=== PATIENT | female | born 1960 | race Caucasian/White ===

== ENCOUNTER → 2017-07-18 | Outpatient (CLI) | payer MEDICARE, MEDICAID ==
[~2017-07-18] MED LIST: LEVO50TA86 PO; LISI-362 PO; METF-410 PO; SIMV-49 PO
== END ==
LOC: AMB 23:09
PROVIDERS: ATTEND Nurse Practitioner
DX: M79.662 Pain in left lower leg (principal); W18.30XA Fall on same level, unspecified, initial encounter; Y92.000 Kitchen of unspecified non-institutional (private) residence as the place of occurrence of the external cause
CPT/HCPCS: A0425; A0427

== ENCOUNTER 2017-07-19 00:20 | Emergency (ER) | payer MEDICARE, MEDICAID ==
--- NOTE | 2017-07-19 00:22 | ER Report ---
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 She fell at approximately 4 PM onto her left hip. She's been lying on the floor for the last 8 hours. Her daughter found her and called EMS to come bring her in. Patient denies head impact, neck pain, chest pain, shortness of breath. She denies syncope. Patient reports she was unable to get up due to left hip pain. She received fentanyl 100 g by EMS. Fingerstick glucose by EMS was 391 2 arrival. On arrival, she is voicing no complaints. REVIEW OF SYSTEMS: Respiratory: No cough, no dyspnea. Cardiovascular: No chest pain, no palpitations. Gastrointestinal: No vomiting, no abdominal pain. Musculoskeletal: No back pain. Allergies: Coded Allergies: Penicillins (Verified Allergy, Intermediate, HIVES, 07/19/17) Home Meds Reported Medications Metformin Hcl (METFORMIN HCL) 500 Mg Tablet, 1 TAB PO BID, TAB 07/19/17 Lisinopril (LISINOPRIL) 10 Mg Tablet, 10 MG PO QDAY, TAB 07/19/17 Levothyroxine Sodium (LEVOTHYROXINE SODIUM) 50 Mcg Tablet, 25 MCG PO QDAY, TAB 07/19/17 Simvastatin (SIMVASTATIN) 20 Mg Tablet, 10 MG PO HS, TAB 07/19/17 Past Medical/Surgical History Type II diabetes on metformin, hypertension on lisinopril, hypothyroidism on replacement Reviewed Nurses Notes: Yes Old Medical Records Reviewed: Yes Constitutional Vital Sign - Last 24 Hours 07/19/17 07/19/17 07/19/17 07/19/17 00:21 00:22 00:50 00:55 Temp 98.0 Pulse 69 72 71 Resp 19 B/P (MAP) 138/93 (108) 138/93 Pulse Ox 93 96 97 O2 Delivery Room Air 07/19/17 07/19/17 07/19/17 07/19/17 01:10 01:25 01:55 02:00 Pulse 96 71 107 Pulse Ox 93 100 100 O2 Flow Rate 2.0 07/19/17 07/19/17 07/19/17 07/19/17 02:30 03:00 03:24 03:30 Pulse 105 104 71 B/P (MAP) 132/72 (92) Pulse Ox 96 96 95 07/19/17 07/19/17 07/19/17 07/19/17 03:35 04:00 04:30 04:35 Pulse 72 81 B/P (MAP) 97/60 (72) 96/63 (74) Pulse Ox 95 96 07/19/17 07/19/17 07/19/17 07/19/17 05:00 05:05 05:30 05:35 Pulse 82 88 B/P (MAP) 94/62 (73) 82/60 (67) Pulse Ox 97 99 Physical Exam General Appearance: The patient is alert, has no immediate need for airway protection and no current signs of toxicity. Vital signs stable, afebrile, no acute distress HEENT: Pupils equal and round no injection. Oropharynx without redness or exudate, mucous membranes are moist Respiratory: Chest is non tender, lungs are clear to auscultation. No chest wall tenderness Cardiac: regular rate and rhythm, distant heart sounds Gastrointestinal: Abdomen is soft and non tender, no masses, bowel sounds normal. Musculoskeletal: Neck: Neck is supple and non tender. No tenderness in the midline Extremities have full range of motion and are non tender. Decreased range of motion of the left leg. Palpation notes tenderness of the left hip and knee area, left lower externally is neurovascularly intact. Skin: No rashes or lesions. DIFFERENTIAL DIAGNOSIS: After history and physical exam differential diagnosis was considered for fall in the elderly including but not limited to intracranial injury, long bone and pelvic bone fracture, spinal injury, and intrathoracic injury. Medical Decision Making Data Points Result Diagram: 07/19/17 0030 07/19/17 003 Laboratory Hematology Test 07/19/17 00:30 07/19/17 01:10 07/19/17 03:28 Red Blood Count 5.05 M/uL (4.17-5.56) Mean Corpuscular Volume 83.1 fL (80.0-96.0) Mean Corpuscular Hemoglobin 28.1 pg (26.0-33.0) Mean Corpuscular Hemoglobin Concent 33.8 g/dL (32.0-36.0) Red Cell Distribution Width 14.7 % (11.5-14.5) Mean Platelet Volume 8.4 fL (7.2-11.1) Neutrophils (%) (Auto) 78.9 % (39.4-72.5) Lymphocytes (%) (Auto) 13.8 % (17.6-49.6) Monocytes (%) (Auto) 6.3 % (4.1-12.4) Eosinophils (%) (Auto) 0.2 % (0.4-6.7) Basophils (%) (Auto) 0.8 % (0.3-1.4) Nucleated RBC Relative Count (auto) 0.1 /100WBC Neutrophils # (Auto) 7.1 K/uL (2.0-7.4) Lymphocytes # (Auto) 1.2 K/uL (1.3-3.6) Monocytes # (Auto) 0.6 K/uL (0.3-1.0) Eosinophils # (Auto) 0.0 K/uL (0.0-0.5) Basophils # (Auto) 0.1 K/uL (0.0-0.1) Nucleated RBC Absolute Count (auto) 0.01 K/uL Prothrombin Time 13.6 seconds (12.0-14.4) Prothromb Time International Ratio 1.03 Activated Partial Thromboplast Time 27 seconds (23-35) Sodium Level 134 mmol/L (137-145) Potassium Level 4.3 mmol/L (3.5-5.0) Chloride Level 97 mmol/L (98-107) Carbon Dioxide Level 20 mmol/L (22-31) Blood Urea Nitrogen 13 mg/dl (7-18) Creatinine 0.70 mg/dl (0.52-1.04) Glomerular Filtration Rate Calc > 60.0 Random Glucose 500 mg/dl (75-110) Lactate 1.3 mmol/L (0.7-2.1) Calcium Level 8.8 mg/dl (8.4-10.2) Total Bilirubin 1.0 mg/dl (0.2-1.3) Aspartate Amino Transf (AST/SGOT) 16 U/L (0-35) Alanine Aminotransferase (ALT/SGPT) 23 U/L (0-56) Alkaline Phosphatase 98 U/L (0-126) Total Creatine Kinase 74 U/L (30-135) Troponin I < 0.012 ng/ml Total Protein 5.6 gm/dl (6.3-8.2) Albumin 3.1 g/dl (3.5-5.0) Urine Color Yellow Urine Clarity Slightly-cloudy Urine pH 5.0 pH (4.8-9.5) Urine Specific [place] 1.026 Urine Protein 100 mg/dL (NEGATIVE) Urine Glucose (UA) 500 mg/dL (NEGATIVE) Urine Ketones 20 mg/dL (NEGATIVE) Urine Blood Small (NEGATIVE) Urine Nitrite Negative (NEGATIVE) Urine Bilirubin Negative (NEGATIVE) Urine Urobilinogen Negative mg/dL (0.2-1.9) Urine Leukocyte Esterase Negative (NEGATIVE) Urine RBC None /HPF (0-2/HPF) Urine WBC 6 /HPF (0-5/HPF) Urine Squamous Epithelial Cells Few /LPF (NONE-FEW) Urine Bacteria Few /HPF (NONE-FEW) Urine Mucus Few /HPF (NONE-FEW) Whole Blood Glucose 447 mg/DL (75-110) Chemistry Test 07/19/17 00:30 07/19/17 01:10 07/19/17 03:28 White Blood Count 8.9 k/uL (4.5-11.0) Red Blood Count 5.05 M/uL (4.17-5.56) Hemoglobin 14.2 g/dL (12.0-16.0) Hematocrit 41.9 % (34.0-47.0) Mean Corpuscular Volume 83.1 fL (80.0-96.0) Mean Corpuscular Hemoglobin 28.1 pg (26.0-33.0) Mean Corpuscular Hemoglobin Concent 33.8 g/dL (32.0-36.0) Red Cell Distribution Width 14.7 % (11.5-14.5) Platelet Count 182 K/uL (150-450) Mean Platelet Volume 8.4 fL (7.2-11.1) Neutrophils (%) (Auto) 78.9 % (39.4-72.5) Lymphocytes (%) (Auto) 13.8 % (17.6-49.6) Monocytes (%) (Auto) 6.3 % (4.1-12.4) Eosinophils (%) (Auto) 0.2 % (0.4-6.7) Basophils (%) (Auto) 0.8 % (0.3-1.4) Nucleated RBC Relative Count (auto) 0.1 /100WBC Neutrophils # (Auto) 7.1 K/uL (2.0-7.4) Lymphocytes # (Auto) 1.2 K/uL (1.3-3.6) Monocytes # (Auto) 0.6 K/uL (0.3-1.0) Eosinophils # (Auto) 0.0 K/uL (0.0-0.5) Basophils # (Auto) 0.1 K/uL (0.0-0.1) Nucleated RBC Absolute Count (auto) 0.01 K/uL Prothrombin Time 13.6 seconds (12.0-14.4) Prothromb Time International Ratio 1.03 Activated Partial Thromboplast Time 27 seconds (23-35) Glomerular Filtration Rate Calc > 60.0 Lactate 1.3 mmol/L (0.7-2.1) Calcium Level 8.8 mg/dl (8.4-10.2) Total Bilirubin 1.0 mg/dl (0.2-1.3) Aspartate Amino Transf (AST/SGOT) 16 U/L (0-35) Alanine Aminotransferase (ALT/SGPT) 23 U/L (0-56) Alkaline Phosphatase 98 U/L (0-126) Total Creatine Kinase 74 U/L (30-135) Troponin I < 0.012 ng/ml Total Protein 5.6 gm/dl (6.3-8.2) Albumin 3.1 g/dl (3.5-5.0) Urine Color Yellow Urine Clarity Slightly-cloudy Urine pH 5.0 pH (4.8-9.5) Urine Specific [place] 1.026 Urine Protein 100 mg/dL (NEGATIVE) Urine Glucose (UA) 500 mg/dL (NEGATIVE) Urine Ketones 20 mg/dL (NEGATIVE) Urine Blood Small (NEGATIVE) Urine Nitrite Negative (NEGATIVE) Urine Bilirubin Negative (NEGATIVE) Urine Urobilinogen Negative mg/dL (0.2-1.9) Urine Leukocyte Esterase Negative (NEGATIVE) Urine RBC None /HPF (0-2/HPF) Urine WBC 6 /HPF (0-5/HPF) Urine Squamous Epithelial Cells Few /LPF (NONE-FEW) Urine Bacteria Few /HPF (NONE-FEW) Urine Mucus Few /HPF (NONE-FEW) Whole Blood Glucose 447 mg/DL (75-110) Coagulation Test 07/19/17 00:30 Prothrombin Time 13.6 seconds Prothromb Time International Ratio 1.03 Activated Partial Thromboplast Time 27 seconds Urinalysis Test 07/19/17 01:10 Urine Color Yellow Urine Clarity Slightly-cloudy Urine pH 5.0 pH (4.8-9.5) Urine Specific [place] 1.026 Urine Protein 100 mg/dL (NEGATIVE) Urine Glucose (UA) 500 mg/dL (NEGATIVE) Urine Ketones 20 mg/dL (NEGATIVE) Urine Blood Small (NEGATIVE) Urine Nitrite Negative (NEGATIVE) Urine Bilirubin Negative (NEGATIVE) Urine Urobilinogen Negative mg/dL (0.2-1.9) Urine Leukocyte Esterase Negative (NEGATIVE) Urine RBC None /HPF (0-2/HPF) Urine WBC 6 /HPF (0-5/HPF) Urine Squamous Epithelial Cells Few /LPF (NONE-FEW) Urine Bacteria Few /HPF (NONE-FEW) Urine Mucus Few /HPF (NONE-FEW) EKG/Imaging EKG Interpretation 12 lead EKG: Rhythm: normal sinus rhythm [place]: normal QRS: normal ST segments: normal, no evidence of ischemia or dysrhythmia Imaging X-ray: Single view portable supine chest x-ray was obtained. I viewed the images myself on the PACS system. My interpretation of the images is: No infiltrate, no effusion, normal mediastinum. The radiologist interpretation had no clinically significant variation from this interpretation. X-ray: Left hip, 2 views was obtained. I viewed the images myself on the PACS system. My interpretation of the images is: No fracture no dislocation, no malalignment, there is a metallic foreign body noted in the right posterior pelvic region. The radiologist interpretation had no clinically significant variation from this interpretation. X-ray: Left knee, 3 views was obtained. I viewed the images myself on the PACS system. My interpretation of the images is: Comminuted distal femur fracture extending intra-articularly. The radiologist interpretation had no clinically significant variation from this interpretation. ED Course/Re-evaluation Clinical Indication for ER IV: Hydration, IV Access ED Course Patient was admitted to an examination room. H&P was done. The differential diagnoses was considered. On conical examination. Patient complains of left hip and left knee pain after a ground-level fall. She did not have syncope. She has type II diabetes on oral agents. Hypertension, hypothyroidism. She has an unsteady gait from nerve damage secondary to a delayed back surgery for herniated disc. Patient fell at 4 PM was on the floor for almost 8 hours before she was found by her daughter. She was brought in by ambulance. Her glucose was 391. On blood draw, her glucose is 500. Her CBC is unremarkable. A CPK shows no evidence of rhabdomyolysis being 74. EKG and troponin were unremarkable. Patient was treated with IV fluid hydration. She received fentanyl 100 g prior to arrival by EMS. In the emergency department. She received Dilaudid 0.5 mg once and then Dilaudid 1 mg IV. A Lafleur catheter was inserted. Patient had diagnostic x-rays performed, which show a comminuted intra-articular fracture of the distal femur. Case was discussed with Dr. Yousif orthopedist adaptive physical education teacher. He states due to the severity of her fracture. We will be unable to repair it at our facility with equivalent available at our id are. He advises transfer to facility with a higher capability of orthopedic care. 07/19/2017 1:42:50 am case was discussed with Dr. German Yousif orthopedist adaptive physical education teacher. The fractures extend into the joint surface. He advises we are unable to take care of this case here at our facility. He advises transfer to facility with a level of orthopedic care. 07/19/2017 2:14:11 am case discussed with Dr. Warner, Dr Hutchinson ER Dr Bertrand trauma surgery who accepts the patient to transfer to [facility]. Decision to Disposition Date: Jul 19, 2017 Decision to Disposition Time: 00:41 Depart Departure Latest Vital Signs Vital Signs Date Time Temp Pulse Resp B/P (MAP) Pulse Ox O2 Delivery O2 Flow Rate FiO2 07/19/17 05:35 88 99 07/19/17 05:30 82/60 (67) 07/19/17 01:10 2.0 07/19/17 00:22 98.0 19 Room Air Impression: Primary Impression: Supracondylar fracture of distal end of femur with intracondylar extension Additional Impressions: Hyperglycemia Type II diabetes mellitus Hypertension Hypothyroidism Condition: Improved Disposition: XFER TO [facility]UTE [facility] Problem Qualifiers Primary Impression: Supracondylar fracture of distal end of femur with intracondylar extension Encounter type: initial encounter Fracture type: closed Fracture alignment : displaced Laterality: left Qualified Codes: S72.462A - Displaced supracondylar fracture with intracondylar extension of lower end of left femur, initial encounter for closed fracture Additional Impressions: Type II diabetes mellitus Diabetes mellitus oil heaterman insulin use: without prison use Diabetes mellitus complication status: without complication Qualified Codes: E11.9 - Type 2 diabetes mellitus without complications Hypertension Hypertension type: essential hypertension Qualified Codes: I10 - Essential ( primary) hypertension Hypothyroidism Hypothyroidism type: unspecified Qualified Codes: E03.9 - Hypothyroidism, unspecified MONICA MCFARLAND DO Jul 19, 2017 00:22
[2017-07-19] MEDS ORDERED: NS(*) 0.9% 500 ML BAG 500 ML IV ONE (00:23)
[2017-07-19] MEDS ORDERED: METF-410 PO (00:24)
[2017-07-19] MEDS ORDERED: LISI-362 PO (00:24)
[2017-07-19] MEDS ORDERED: SIMV-49 PO (00:24)
[2017-07-19] MEDS ORDERED: LEVO50TA86 PO (00:24)
[2017-07-19 00:41] LABS: PLATELET COUNT, AUTOMATED 182 K/uL (150-450)
[2017-07-19] MEDS ORDERED: EMS NS 0.9%(*) 1000 ML BAG 1,000 ML IV ONE (00:45)
[2017-07-19 00:47] LABS: INR 1.03
[2017-07-19] MEDS ORDERED: HYDROmorphone* 1 MG/ML 1 MG/ML ML IVP ONE ×3 (01:00→03:50)
--- NOTE | 2017-07-19 01:07 | EKG ---
FACILITY: [facility] PATIENT NAME: DEBI DEVLIN : [id number] MR: [id number] V: [id number] EXAM DATE: ORDERING PHYSICIAN: MONICA MCFARLAND TECHNOLOGIST: VANCE Test Reason : SYNCOPE Blood Pressure : / mmHG Vent. Rate : 071 BPM Atrial Rate : 071 BPM P-R Int : 124 ms QRS Dur : 078 ms QT Int : 426 ms P-R-T Axes : 029 047 045 degrees QTc Int : 462 ms Normal sinus rhythm Normal ECG No previous ECGs available Confirmed by MALIKA BOYD ([id number]) on 07/19/2017 4:37:51 AM Referred By: Confirmed By:MALIKA BOYD
--- NOTE | 2017-07-19 01:28 | RADIOLOGY IMAGING REPORT ---
[place] [facility] [place] Mera Echevarria : 1960 MR: [id number] V: [id number] EXAM DATE: ORDERING PHYSICIAN: MONICA MCFARLAND TECHNOLOGIST: Location: [facility] [place] Patient: Mera Echevarria : 1960 Visit/Account:[id number] Date of Sevice: 07/19/2017 PELVIS and LEFT HIP: Indication: Injury. Technique: Two views were obtained. Comparison: None. Findings: There is no evidence of fracture, dislocation, or other acute deformity. There is mild oste oarthritic joint space narrowing in both hips. There is uniform mineralization of the skeletal struct ures. There is no evidence of soft tissue deformity or calcification. A sewing needle is projected ov er the soft tissues medial to the proximal right femur. IMPRESSION: No acute skeletal deformity. Report Dictated By: Kenneth Bennett MD at 07/19/2017 1:21 AM Report E-Signed By: Kenneth Bennett MD at 07/19/2017 1:23 AM WSN:[id number]
--- NOTE | 2017-07-19 01:30 | RADIOLOGY IMAGING REPORT ---
FACILITY: [facility] PATIENT NAME: Mera Echevarria : 1960 MR: [id number] V: [id number] EXAM DATE: ORDERING PHYSICIAN: MONICA MCFARLAND TECHNOLOGIST: Location: [facility] [place] Patient: Mera Echevarria : 1960 Visit/Account:[id number] Date of Sevice: 07/19/2017 LEFT KNEE: Indication: Injury. Technique: 3 views of the knee were obtained. Comparison: None. Findings: There is a comminuted fracture involving the distal femoral metaphysis and bilateral femora l condyles. There is depression of the lateral tibial plateau, which may represent acute or chronic d eformity. There are signs of pre-existing osteoarthritis. There is uniform mineralization. The latera l view demonstrates evidence of joint effusion. IMPRESSION: There is comminuted fracture of the distal femur. There is depression of the lateral tibi al plateau, which may represent acute or chronic deformity. Report Dictated By: Kenneth Bennett MD at 07/19/2017 1:23 AM Report E-Signed By: Kenneth Bennett MD at 07/19/2017 1:27 AM WSN:[id number]
--- NOTE | 2017-07-19 01:31 | RADIOLOGY IMAGING REPORT ---
FACILITY: [facility] [place] PATIENT NAME: Mera Echevarria : 1960 MR: [id number] V: [id number] EXAM DATE: ORDERING PHYSICIAN: MONICA MCFARLAND TECHNOLOGIST: Location: [facility] Patient: Mera Echevarria : 1960 Visit/Account:[id number] Date of Sevice: 07/19/2017 PORTABLE CHEST: Indication: Injury. Technique: A single supine film was obtained. Comparison: 02/05/2017 Skeletal and soft tissue structures: Intact and unremarkable. Heart and mediastinum: Within normal limits. Lung henriquez: Well-expanded and clear. Pleural spaces: Unremarkable. Impression: No acute process or significant change. Report Dictated By: Kenneth Bennett MD at 07/19/2017 1:27 AM Report E-Signed By: Kenneth Bennett MD at 07/19/2017 1:28 AM WSN:[id number]
[2017-07-19] MEDS ORDERED: INSU HUM REG 100 U/ML(ER ONLY) 10 ML VIAL IV ONE ×2 (02:00→03:30)
[2017-07-19] MEDS ORDERED: NS(*) 0.9% 1000 ML BAG 1,000 ML IV ONE (05:45)
[2017-07-19 06:09] VITALS: BP 85/52
== END 2017-07-19 06:32 | disposition short-term general hospital (02) ==
LOC: ER 00:23
DX: S72.462A Displaced supracondylar fracture with intracondylar extension of lower end of left femur, initial encounter for closed fracture (principal); E11.9 Type 2 diabetes mellitus without complications; I10 Essential (primary) hypertension; E03.9 Hypothyroidism, unspecified; W18.30XA Fall on same level, unspecified, initial encounter
CPT/HCPCS: 36416; 71045; 73502; 73562; 81001; 82550; 82948; 83605; 84484; 85025; 85610; 85730; 93005; 96361; 96374; 96375; 96376; 99285; A9270; J1170; J7030; J7040; 82040; 82247; 82310; 82374; 82435; 82565; 82947; 84075; 84132; 84155; 84295; 84450; 84460; 84520; J1815

== ENCOUNTER → 2017-07-19 | Outpatient (CLI) | payer MEDICARE, MEDICAID | LOC: AMB 06:20 | PROVIDERS: ATTEND Nurse Practitioner | DX: S72.92XA Unspecified fracture of left femur, initial encounter for closed fracture (principal) | CPT/HCPCS: A0425; A0426 ==

== ENCOUNTER 2017-09-10 13:19 | Emergency (ER) | payer MEDICARE, MEDICAID ==
[~2017-09-10 13:19] MED LIST changes: -AMLO2.5T74 PO; -CIPR-344 PO; -DIPH-543 PO; -INSU100I10; -INSU300I SUBQ; -LEVO-85 PO; -METR-1 PO; -OMEP40CA48 PO; -ONDA4TAB97 PO; -OXYC-373 PO; -SUCR1TAB85 PO
[2017-09-10] MEDS ORDERED: INSU100I10 (13:36)
[2017-09-10] MEDS ORDERED: NS(*) 0.9% 1000 ML BAG 1,000 ML IV ONE (13:43)
[2017-09-10] MEDS ORDERED: OXYC-373 PO (13:43)
--- NOTE | 2017-09-10 13:43 | ER Report ---
History and Physical Time Seen By MD: 13:32 Hx. of Stated Complaint: PT REPORTS HORRIBLE STOMACH CRAMPS, SEVERE DIARRHEA 1-2 WEEKS HPI/ROS CHIEF COMPLAINT: Diarrhea HISTORY OF PRESENT ILLNESS: 57-year-old female patient presents to emergency room with complaint of diarrhea. Patient states that she has been having just 1- 2 bouts of diarrhea a day. She states that today has been significantly worse. She states that today she has had upwards of 4 bouts of diarrhea. She states last was just prior to leaving and she was incontinent. Patient states that she has had this diarrhea for the last 3 weeks. She states that she was in a snf after fracturing her femur. She states that she was never on any antibiotics. She states that she's not had any fevers or chills. She states that she is concerned because the diarrhea today, stating that she had several bouts and took Imodium for that with no improvement in her symptoms. REVIEW OF SYSTEMS: Respiratory: No cough, no dyspnea. Cardiovascular: No chest pain, no palpitations. Gastrointestinal: As noted above Musculoskeletal: No back pain. Allergies: Coded Allergies: Penicillins (Verified Allergy, Intermediate, HIVES, 07/19/17) Home Meds Active Scripts Sucralfate (CARAFATE) 1 Gm Tablet, 1 GM PO QID, #60 TAB Take before meals and at bedtime. Crush the tablet and mix with water before taking. Prov:VALORIE RAINEY [facility] 09/10/17 Omeprazole (OMEPRAZOLE) 40 Mg Capsule.dr, 40 MG PO QDAY, #30 CAP Prov:VALORIE RAINEY [facility] 09/10/17 Reported Medications Oxycodone Hcl/Acetaminophen (OXYCODONE-ACETAMINOPHEN 5-325) 1 Each Tablet, 1 EACH PO, TAB 09/10/17 Insulin Glargine,Hum.rec.anlog (Basaglar Kwikpen U-100) 100 Unit/Ml (3 Ml) Insuln.pen 09/10/17 Metformin Hcl (METFORMIN HCL) 500 Mg Tablet, 1 TAB PO BID, TAB 07/19/17 Lisinopril (LISINOPRIL) 10 Mg Tablet, 10 MG PO QDAY, TAB 07/19/17 Levothyroxine Sodium (LEVOTHYROXINE SODIUM) 50 Mcg Tablet, 25 MCG PO QDAY, TAB 4/8/18 Simvastatin (SIMVASTATIN) 20 Mg Tablet, 10 MG PO HS, TAB 07/19/17 Past Medical/Surgical History Patient has a past medical history of inability to control bowel, inability to control bladder secondary to disc bulge, left femur fracture, cataracts, type 2 diabetes, hypothyroidism, alcohol use. Patient has surgical history of hysterectomy, back surgery, left femur repair, bladder sling. Reviewed Nurses Notes: Yes Hx Substance Use Disorder: No Hx Alcohol Use: Yes (OCC) Constitutional Vital Sign - Last 24 Hours 09/10/17 09/10/17 09/10/17 09/10/17 13:23 13:24 13:30 13:34 Pulse 95 68 Resp 16 B/P (MAP) 192/113 (139) 192/113 163/92 (115) Pulse Ox 91 95 O2 Delivery Room Air 09/10/17 09/10/17 09/10/17 09/10/17 13:49 14:00 14:04 14:19 Pulse 64 ??? 71 Resp 15 B/P (MAP) ???/??? (1665) Pulse Ox 97 92 09/10/17 09/10/17 09/10/17 09/10/17 14:31 14:34 14:49 15:04 Pulse 66 ??? 66 Resp 6 B/P (MAP) 173/72 (105) Pulse Ox 91 94 09/10/17 09/10/17 09/10/17 09/10/17 15:09 15:24 15:30 15:39 Pulse 64 68 64 Resp 9 11 9 B/P (MAP) 165/77 (106) Pulse Ox 96 92 93 09/10/17 09/10/17 09/10/17 09/10/17 15:54 16:00 16:09 16:30 Temp 98.3 Pulse 62 62 Resp 25 0 B/P (MAP) 176/80 (112) Pulse Ox 96 91 09/10/17 09/10/17 09/10/17 16:30 16:41 16:54 Pulse ??? B/P (MAP) 171/77 (108) 172/60 (97) Intake and Output 09/10/17 09/10/17 09/11/17 15:00 23:00 07:00 Intake Total 1000 ml Balance 1000 ml Physical Exam General Appearance: The patient is alert, has no immediate need for airway protection and no current signs of toxicity. Respiratory: Chest is non tender, lungs are clear to auscultation. Cardiac: regular rate and rhythm Gastrointestinal: Abdomen is soft and tender throughout, no masses, bowel sounds normal. Musculoskeletal: Neck: Neck is supple and non tender. Extremities have full range of motion and are non tender. Skin: No rashes or lesions. DIFFERENTIAL DIAGNOSIS: After history and physical exam differential diagnosis was considered for gastroenteritis, colitis, GI bleed. Medical Decision Making Data Points Result Diagram: 09/10/17 1412 09/10/17 1412 Laboratory Hematology Test 09/10/17 00:00 09/10/17 14:00 09/10/17 14:12 09/10/17 15:10 Stool Occult Blood (IFOB) Positive (NEGATIVE) Clostridium Difficile Toxin A & B Negative Clostridium difficile Antigen Negative Red Blood Count 4.42 M/uL (4.17-5.56) Mean Corpuscular Volume 79.9 fL (80.0-96.0) Mean Corpuscular Hemoglobin 27.5 pg (26.0-33.0) Mean Corpuscular Hemoglobin Concent 34.4 g/dL (32.0-36.0) Red Cell Distribution Width 16.1 % (11.5-14.5) Mean Platelet Volume 7.9 fL (7.2-11.1) Neutrophils (%) (Auto) 66.2 % (39.4-72.5) Lymphocytes (%) (Auto) 23.3 % (17.6-49.6) Monocytes (%) (Auto) 5.7 % (4.1-12.4) Eosinophils (%) (Auto) 3.7 % (0.4-6.7) Basophils (%) (Auto) 1.1 % (0.3-1.4) Nucleated RBC Relative Count (auto) 0.0 /100WBC Neutrophils # (Auto) 4.1 K/uL (2.0-7.4) Lymphocytes # (Auto) 1.5 K/uL (1.3-3.6) Monocytes # (Auto) 0.4 K/uL (0.3-1.0) Eosinophils # (Auto) 0.2 K/uL (0.0-0.5) Basophils # (Auto) 0.1 K/uL (0.0-0.1) Nucleated RBC Absolute Count (auto) 0.00 K/uL Sodium Level 139 mmol/L (137-145) Potassium Level 4.1 mmol/L (3.5-5.0) Chloride Level 103 mmol/L (98-107) Carbon Dioxide Level 23 mmol/L (22-31) Blood Urea Nitrogen 18 mg/dl (7-18) Creatinine 0.80 mg/dl (0.52-1.04) Glomerular Filtration Rate Calc > 60.0 Random Glucose 403 mg/dl (75-110) Calcium Level 9.3 mg/dl (8.4-10.2) Total Bilirubin 0.5 mg/dl (0.2-1.3) Aspartate Amino Transf (AST/SGOT) 13 U/L (0-35) Alanine Aminotransferase (ALT/SGPT) 15 U/L (0-56) Alkaline Phosphatase 121 U/L (0-126) Total Protein 6.4 gm/dl (6.3-8.2) Albumin 3.6 g/dl (3.5-5.0) Human Chorionic Gonadotropin, Qual Negative (NEGATIVE) Urine Color Yellow Urine Clarity Clear Urine pH 6.0 pH (4.8-9.5) Urine Specific [place] 1.020 Urine Protein 100 mg/dL (NEGATIVE) Urine Glucose (UA) 500 mg/dL (NEGATIVE) Urine Ketones Negative mg/dL (NEGATIVE) Urine Blood Moderate (NEGATIVE) Urine Nitrite Negative (NEGATIVE) Urine Bilirubin Negative (NEGATIVE) Urine Urobilinogen 4.0 mg/dL (0.2-1.9) Urine Leukocyte Esterase Trace (NEGATIVE) Urine RBC 34 /HPF (0-2/HPF) Urine WBC 3 /HPF (0-5/HPF) Urine Squamous Epithelial Cells Moderate /LPF (NONE-FEW) Urine Bacteria Negative /HPF (NONE-FEW) Urine Mucus None /HPF (NONE-FEW) Chemistry Test 09/10/17 00:00 09/10/17 14:00 09/10/17 14:12 09/10/17 15:10 Stool Occult Blood (IFOB) Positive (NEGATIVE) Clostridium Difficile Toxin A & B Negative Clostridium difficile Antigen Negative White Blood Count 6.2 k/uL (4.5-11.0) Red Blood Count 4.42 M/uL (4.17-5.56) Hemoglobin 12.1 g/dL (12.0-16.0) Hematocrit 35.3 % (34.0-47.0) Mean Corpuscular Volume 79.9 fL (80.0-96.0) Mean Corpuscular Hemoglobin 27.5 pg (26.0-33.0) Mean Corpuscular Hemoglobin Concent 34.4 g/dL (32.0-36.0) Red Cell Distribution Width 16.1 % (11.5-14.5) Platelet Count 217 K/uL (150-450) Mean Platelet Volume 7.9 fL (7.2-11.1) Neutrophils (%) (Auto) 66.2 % (39.4-72.5) Lymphocytes (%) (Auto) 23.3 % (17.6-49.6) Monocytes (%) (Auto) 5.7 % (4.1-12.4) Eosinophils (%) (Auto) 3.7 % (0.4-6.7) Basophils (%) (Auto) 1.1 % (0.3-1.4) Nucleated RBC Relative Count (auto) 0.0 /100WBC Neutrophils # (Auto) 4.1 K/uL (2.0-7.4) Lymphocytes # (Auto) 1.5 K/uL (1.3-3.6) Monocytes # (Auto) 0.4 K/uL (0.3-1.0) Eosinophils # (Auto) 0.2 K/uL (0.0-0.5) Basophils # (Auto) 0.1 K/uL (0.0-0.1) Nucleated RBC Absolute Count (auto) 0.00 K/uL Glomerular Filtration Rate Calc > 60.0 Calcium Level 9.3 mg/dl (8.4-10.2) Total Bilirubin 0.5 mg/dl (0.2-1.3) Aspartate Amino Transf (AST/SGOT) 13 U/L (0-35) Alanine Aminotransferase (ALT/SGPT) 15 U/L (0-56) Alkaline Phosphatase 121 U/L (0-126) Total Protein 6.4 gm/dl (6.3-8.2) Albumin 3.6 g/dl (3.5-5.0) Human Chorionic Gonadotropin, Qual Negative (NEGATIVE) Urine Color Yellow Urine Clarity Clear Urine pH 6.0 pH (4.8-9.5) Urine Specific [place] 1.020 Urine Protein 100 mg/dL (NEGATIVE) Urine Glucose (UA) 500 mg/dL (NEGATIVE) Urine Ketones Negative mg/dL (NEGATIVE) Urine Blood Moderate (NEGATIVE) Urine Nitrite Negative (NEGATIVE) Urine Bilirubin Negative (NEGATIVE) Urine Urobilinogen 4.0 mg/dL (0.2-1.9) Urine Leukocyte Esterase Trace (NEGATIVE) Urine RBC 34 /HPF (0-2/HPF) Urine WBC 3 /HPF (0-5/HPF) Urine Squamous Epithelial Cells Moderate /LPF (NONE-FEW) Urine Bacteria Negative /HPF (NONE-FEW) Urine Mucus None /HPF (NONE-FEW) Urinalysis Test 09/10/17 15:10 Urine Color Yellow Urine Clarity Clear Urine pH 6.0 pH (4.8-9.5) Urine Specific [place] 1.020 Urine Protein 100 mg/dL (NEGATIVE) Urine Glucose (UA) 500 mg/dL (NEGATIVE) Urine Ketones Negative mg/dL (NEGATIVE) Urine Blood Moderate (NEGATIVE) Urine Nitrite Negative (NEGATIVE) Urine Bilirubin Negative (NEGATIVE) Urine Urobilinogen 4.0 mg/dL (0.2-1.9) Urine Leukocyte Esterase Trace (NEGATIVE) Urine RBC 34 /HPF (0-2/HPF) Urine WBC 3 /HPF (0-5/HPF) Urine Squamous Epithelial Cells Moderate /LPF (NONE-FEW) Urine Bacteria Negative /HPF (NONE-FEW) Urine Mucus None /HPF (NONE-FEW) EKG/Imaging Imaging EXAMINATION: CT abdomen and pelvis with IV contrast HISTORY: Abdominal pain. TECHNIQUE: Axial CT images of the abdomen and pelvis were obtained with IV contrast, with coronal and sagittal 2D reconstructed images. One of the following dose optimization techniques was utilized in the performance of this exam: Automated exposure control; adjustment of the mA and/ or kV according to the patient's size; or use of an iterative reconstruction technique. Specific details can be referenced in the facility's radiology CT exam operational policy. Contrast: 75 mL of IV Isovue-370. COMPARISON: None. FINDINGS: Liver: Negative. Gallbladder and bile ducts: Gallbladder is moderately distended, measuring 3.2 cm in diameter. There is mild wall thickening and enhancement of the gallbladder wall which may be compatible with cholecystitis. No calcified gallstones. No bile duct dilatation. Spleen: Moderate splenomegaly. The spleen measures 17 cm in length. The spleen enhances normally. Pancreas: There are a few scattered parenchymal calcifications along the pancreas which may represent sequela of prior pancreatitis. No acute peripancreatic stranding. Adrenal glands: Negative. Kidneys: Normal size and morphology of both kidneys. No urinary calculi or hydronephrosis. Bowel and peritoneum: The small bowel and colon are normal in caliber, without evidence of obstruction or any focal inflammatory process. Moderate volume of stool throughout the colon. Normal appendix in the mid right abdomen. No free fluid or free intraperitoneal air. Pelvic structures: Lafleur catheter in the bladder. Lymph node assessment: Negative. Vessels: Mild vascular calcifications. Normal caliber abdominal aorta. Musculoskeletal: There is chronic-appearing serpiginous sclerotic change in both femoral heads compatible with AVN. Changes extend into the femoral neck on the left side. No acute osseous findings. Scattered degenerative changes throughout the spine. Body wall: Abdominal wall structures appear intact. There is a needle-like linear metallic foreign body present in the subcutaneous soft tissues of the inferior right buttock measuring approximately 4 cm in length. Lung bases: Negative. IMPRESSION: 1. There is mild wall thickening and enhancement of the gallbladder wall. Correlate with clinical and/or laboratory evidence for cholecystitis. Follow-up ultrasound could be performed for further evaluation if clinically indicated. 2. Moderate volume of stool throughout the colon may be compatible with constipation. No bowel obstruction. 3. No other acute intra-abdominal findings. 4. There is a linear needle-like metallic foreign body present in the subcutaneous soft tissues of the inferior right buttock, measuring approximately 4 cm in length, of uncertain etiology. Findings were discussed with VALORIE RAINEY at 09/10/2017 3:40 PM. Report Dictated By: Henry Mcknight MD at 09/10/2017 3:19 PM Report E-Signed By: Henry Mcknight MD at 09/10/2017 3:41 PM ED Course/Re-evaluation ED Course Patient was admitted and examined, history and physical were obtained. Differential diagnoses were considered. On examination lungs are clear, heart is regular, abdomen soft and diffusely tender. A CBC, CMP, urinalysis, CT scan of the abdomen and pelvis was done and patient had been incontinent of stool were able to collect a sample and the patient was positive for blood, she was negative for C. difficile. The remainder the labs were unremarkable. CT scan of the abdomen showed no acute findings, there may be some thickening of the gallbladder wall, however the patient had no tenderness in the right upper quadrant and subareolar does install finding. I discussed the findings with the patient. We will go ahead and discharge patient home. She is follow-up with Dr. Yang for colonoscopy. She is return to emergency room if condition worsens. We'll go ahead and start the patient on Carafate at this time. She verbalized understanding and agreement with plan. Decision to Disposition Date: September 10, 2017 Decision to Disposition Time: 16:01 Depart Departure Latest Vital Signs Vital Signs Date Time Temp Pulse Resp B/P (MAP) Pulse Ox O2 Delivery O2 Flow Rate FiO2 09/10/17 16:54 ??? 09/10/17 16:41 172/60 (97) 09/10/17 16:30 98.3 09/10/17 16:09 0 91 09/10/17 13:24 Room Air Impression: Primary Impression: GI bleed Additional Impression: Retained foreign body Condition: Improved Disposition: HOME OR SELF-CARE New Scripts Sucralfate (CARAFATE) 1 Gm Tablet 1 GM PO QID, #60 TAB Take before meals and at bedtime. Crush the tablet and mix with water before taking. Prov: VALORIE RAINEY 09/10/17 Omeprazole (OMEPRAZOLE) 40 Mg Capsule. 40 MG PO QDAY, #30 CAP Prov: VALORIE RAINEY 09/10/17 Patient Instructions: Gastrointestinal Bleeding (ED) Additional Instructions: Increase fluid intake. Get plenty of rest. Follow up with Dr. Yang. Call to make an appointment. Return to the ER if condition worsens. Take your medications as prescribed. Problem Qualifiers Primary Impression: GI bleed GI bleed type/associated pathology: unspecified gastrointestinal hemorrhage type Qualified Codes: K92.2 - Gastrointestinal hemorrhage, unspecified VALORIE RAINEY September 10, 2017 13:43
[2017-09-10] MEDS ORDERED: IOPAMIDOL 76% 75 ML INFUS BTL 75 ML ONE (13:59)
[2017-09-10 14:30] LABS: PLATELET COUNT, AUTOMATED 217 K/uL (150-450)
--- NOTE | 2017-09-10 15:44 | RADIOLOGY IMAGING REPORT ---
FACILITY: [facility] PATIENT NAME: Mera Echevarria : 1960 MR: [id number] V: [id number] EXAM DATE: ORDERING PHYSICIAN: VALORIE RAINEY TECHNOLOGIST: Location: [facility] Patient: Mera Echevarria : 1960 Visit/Account:[id number] Date of Sevice: 09/10/2017 EXAMINATION: CT abdomen and pelvis with IV contrast HISTORY: Abdominal pain. TECHNIQUE: Axial CT images of the abdomen and pelvis were obtained with IV contrast, with coronal a nd sagittal 2D reconstructed images. One of the following dose optimization techniques was utilized in the performance of this exam: Autom ated exposure control; adjustment of the mA and/or kV according to the patient's size; or use of an i terative reconstruction technique. Specific details can be referenced in the facility's radiology C T exam operational policy. Contrast: 75 mL of IV Isovue-370. COMPARISON: None. FINDINGS: Liver: Negative. Gallbladder and bile ducts: Gallbladder is moderately distended, measuring 3.2 cm in diameter. There is mild wall thickening and enhancement of the gallbladder wall which may be compatible with cholecy stitis. No calcified gallstones. No bile duct dilatation. Spleen: Moderate splenomegaly. The spleen measures 17 cm in length. The spleen enhances normally. Pancreas: There are a few scattered parenchymal calcifications along the pancreas which may represen t sequela of prior pancreatitis. No acute peripancreatic stranding. Adrenal glands: Negative. Kidneys: Normal size and morphology of both kidneys. No urinary calculi or hydronephrosis. Bowel and peritoneum: The small bowel and colon are normal in caliber, without evidence of obstructi on or any focal inflammatory process. Moderate volume of stool throughout the colon. Normal appendix in the mid right abdomen. No free fluid or free intraperitoneal air. Pelvic structures: Lafleur catheter in the bladder. Lymph node assessment: Negative. Vessels: Mild vascular calcifications. Normal caliber abdominal aorta. Musculoskeletal: There is chronic-appearing serpiginous sclerotic change in both femoral heads comp atible with AVN. Changes extend into the femoral neck on the left side. No acute osseous findings. Sc attered degenerative changes throughout the spine. Body wall: Abdominal wall structures appear intact. There is a needle-like linear metallic foreign b janet present in the subcutaneous soft tissues of the inferior right buttock measuring approximately 4 cm in length. Lung bases: Negative. IMPRESSION: 1. There is mild wall thickening and enhancement of the gallbladder wall. Correlate with clinical and /or laboratory evidence for cholecystitis. Follow-up ultrasound could be performed for further evalua tion if clinically indicated. 2. Moderate volume of stool throughout the colon may be compatible with constipation. No bowel obstru ction. 3. No other acute intra-abdominal findings. 4. There is a linear needle-like metallic foreign body present in the subcutaneous soft tissues of th e inferior right buttock, measuring approximately 4 cm in length, of uncertain etiology. Findings were discussed with VALORIE RAINEY at 09/10/2017 3:40 PM. Report Dictated By: Henry Mcknight MD at 09/10/2017 3:19 PM Report E-Signed By: Henry Mcknight MD at 09/10/2017 3:41 PM [id number]
[2017-09-10] MEDS ORDERED: OMEP40CA48 PO (16:00)
[2017-09-10] MEDS ORDERED: SUCR1TAB85 PO (16:00)
[2017-09-10] MEDS ORDERED: SUCRALFATE 1 GM TAB PO ONE (16:05)
[2017-09-10] MEDS ORDERED: PANTOPRAZOLE SOD 40 MG TABEC PO ONE (16:05)
[2017-09-10 16:41] VITALS: BP 172/60
== END 2017-09-10 17:06 | disposition home or self-care (01) ==
LOC: ER 13:30
DX: K92.2 Gastrointestinal hemorrhage, unspecified (principal); M79.5 Residual foreign body in soft tissue
CPT/HCPCS: 74177; 81001; 82274; 83630; 84703; 85025; 87045; 87177; 87324; 87449; 96360; 96361; 99284; A9270; J7030; Q9967; 82040; 82247; 82310; 82374; 82435; 82565; 82947; 84075; 84132; 84155; 84295; 84450; 84460; 84520

== ENCOUNTER → 2017-09-10 | Outpatient (CLI) | payer MEDICARE, MEDICAID ==
[~2017-09-10] MED LIST changes: +AMLO2.5T74 PO; +CIPR-344 PO; +DIPH-543 PO; +INSU100I10; +INSU300I SUBQ; +LEVO-85 PO; -METF-410 PO; +METF-411 PO; +METR-1 PO; +OMEP40CA48 PO; +ONDA4TAB97 PO; +OXYC-373 PO; +SUCR1TAB85 PO
== END ==
LOC: AMB 12:35
PROVIDERS: ATTEND Nurse Practitioner
DX: R53.81 Other malaise (principal)
CPT/HCPCS: A0425; A0429

== ENCOUNTER → 2017-09-10 | Outpatient (CLI) | payer MEDICARE, MEDICAID | LOC: AMB 16:56 | PROVIDERS: ATTEND Nurse Practitioner | DX: Z76.89 Persons encountering health services in other specified circumstances (principal) | CPT/HCPCS: A0425; A0428 ==

== ENCOUNTER 2017-09-16 01:06 | Emergency (ER) | payer MEDICARE, MEDICAID ==
[~2017-09-16 01:06] MED LIST changes: -AMLO2.5T74 PO; -CIPR-344 PO; -DIPH-543 PO; -INSU300I SUBQ; -LEVO-85 PO; -METR-1 PO; -ONDA4TAB97 PO
--- NOTE | 2017-09-16 01:20 | ER Report ---
History and Physical Time Seen By MD: 01:17 HPI/ROS CHIEF COMPLAINT: Diarrhea, weakness HISTORY OF PRESENT ILLNESS: 57 year-old female, type II diabetic, insulin required prevents via ambulance from home complaining of generalized weakness. Patient was seen here one week ago had an extensive evaluation including a CT scan of the abdomen. Her diarrhea was sent for analysis. She did have heme positive stools. She was C. difficile negative. A stool culture did not grow any coliforms. She was discharged home on omeprazole and Carafate. She was advised to follow-up and have a colonoscopy performed. Patient now reports that she's had diarrhea for 3-4 weeks. She describes copious watery diarrhea. She states she's dehydrated and weak now. She has chronic weakness due to degenerative disc disease and lower extremity weakness. Patient notes mild crampy abdominal pain 5/10 without radiation. She currently voicing no complaints. She has no nausea, vomiting or fever or chills. She denies recent antibiotic use. She denies recent travel or exposure to ill contacts. REVIEW OF SYSTEMS: Respiratory: No cough, no dyspnea. Cardiovascular: No chest pain, no palpitations. Gastrointestinal: No vomiting, no abdominal pain. Musculoskeletal: No back pain. Allergies: Coded Allergies: Penicillins (Verified Allergy, Intermediate, HIVES, 09/16/17) Home Meds Active Scripts Ondansetron Hcl (ZOFRAN) 4 Mg Tablet, 4 MG PO Q6H Y for NAUSEA/VOMITING, #12 Prov:MONICA MCFARLAND DO 09/16/17 Metronidazole (FLAGYL) 500 Mg Tablet, 500 MG PO BID for infection, #14 TAB Prov:MONICA MCFARLAND DO 09/16/17 Ciprofloxacin Hcl (CIPRO) 500 Mg Tablet, 500 MG PO BID for infection, #14 Prov:MONICA MCFARLAND DO 09/16/17 Sucralfate (CARAFATE) 1 Gm Tablet, 1 GM PO QID, #60 TAB Take before meals and at bedtime. Crush the tablet and mix with water before taking. Prov:VALORIE RAINEY [facility] 09/10/17 Omeprazole (OMEPRAZOLE) 40 Mg Capsule.dr, 40 MG PO QDAY, #30 CAP Prov:VALORIE RAINEY [facility] 09/10/17 Reported Medications Insulin Glargine,Hum.rec.anlog (Basaglar Kwikpen U-100) 100 Unit/Ml (3 Ml) Insuln.pen 09/10/17 Metformin Hcl (METFORMIN HCL) 500 Mg Tablet, 1 TAB PO BID, TAB 07/19/17 Lisinopril (LISINOPRIL) 10 Mg Tablet, 10 MG PO QDAY, TAB 07/19/17 Levothyroxine Sodium (LEVOTHYROXINE SODIUM) 50 Mcg Tablet, 25 MCG PO QDAY, TAB 07/19/17 Simvastatin (SIMVASTATIN) 20 Mg Tablet, 10 MG PO HS, TAB 07/19/17 Discontinued Reported Medications Oxycodone Hcl/Acetaminophen (OXYCODONE-ACETAMINOPHEN 5-325) 1 Each Tablet, 1 EACH PO, TAB 09/10/17 Past Medical/Surgical History Patient has a past medical history of inability to control bowel, inability to control bladder secondary to disc bulge, left femur fracture, cataracts, type 2 diabetes, hypothyroidism, alcohol use. Patient has surgical history of hysterectomy, back surgery, left femur repair, bladder sling. Reviewed Nurses Notes: Yes Old Medical Records Reviewed: Yes Hx Substance Use Disorder: No Hx Alcohol Use: Yes (OCC) Constitutional Vital Sign - Last 24 Hours 09/16/17 09/16/17 09/16/17 09/16/17 01:16 01:18 01:36 01:44 Temp 97.6 Pulse 61 70 Resp 18 15 B/P (MAP) 160/137 (145) 160/137 187/82 (117) Pulse Ox 98 96 O2 Delivery Room Air 09/16/17 09/16/17 09/16/17 09/16/17 02:17 02:30 02:36 02:56 Pulse 57 58 Resp 13 10 B/P (MAP) 173/79 (110) 172/75 (107) Pulse Ox 95 94 09/16/17 04:01 Pulse 60 Resp 17 B/P (MAP) 165/62 (96) Pulse Ox 92 Physical Exam General Appearance: The patient is alert, has no immediate need for airway protection and no current signs of toxicity.. Vital signs stable, afebrile, pulse ox normal HEENT: Pupils equal and round no injection. Oropharynx without redness, mucous membranes are moist Respiratory: Chest is non tender, lungs are clear to auscultation. Cardiac: regular rate and rhythm Gastrointestinal: Abdomen is soft and non tender, no masses, bowel sounds normal. Musculoskeletal: Neck: Neck is supple and non tender. No lymphadenopathy Extremities have full range of motion and are non tender. Well-healed surgical scar left lateral thigh consistent with her distal femur fracture involving the knee joint from 07/19/17 Skin: No rashes or lesions. DIFFERENTIAL DIAGNOSIS: After history and physical exam differential diagnosis was considered for abdominal pain including but not limited to appendicitis, cholecystitis, gastritis, gastroenteritis, food poisoning, viral syndrome, secretory, diarrhea, Clostridium difficile and urinary tract infection Medical Decision Making Data Points Result Diagram: 09/16/17 0215 09/16/17 0215 Laboratory Hematology Test 09/16/17 01:40 09/16/17 02:15 Urine Color Yellow Urine Clarity Slightly-cloudy Urine pH 5.0 pH (4.8-9.5) Urine Specific [place] 1.004 Urine Protein 100 mg/dL (NEGATIVE) Urine Glucose (UA) 50 mg/dL (NEGATIVE) Urine Ketones Negative mg/dL (NEGATIVE) Urine Blood Moderate (NEGATIVE) Urine Nitrite Negative (NEGATIVE) Urine Bilirubin Negative (NEGATIVE) Urine Urobilinogen Negative mg/dL (0.2-1.9) Urine Leukocyte Esterase Trace (NEGATIVE) Urine RBC <1 /HPF (0-2/HPF) Urine WBC 4 /HPF (0-5/HPF) Urine Squamous Epithelial Cells Many /LPF (NONE-FEW) Urine Amorphous Crystals Moderate /HPF Urine Bacteria Few /HPF (NONE-FEW) Urine Mucus None /HPF (NONE-FEW) Stool Occult Blood (IFOB) Positive (NEGATIVE) Stool Leukocytes, Qualitative Positive Clostridium Difficile Toxin A & B Negative Clostridium difficile Antigen Negative Red Blood Count 4.17 M/uL (4.17-5.56) Mean Corpuscular Volume 80.3 fL (80.0-96.0) Mean Corpuscular Hemoglobin 27.5 pg (26.0-33.0) Mean Corpuscular Hemoglobin Concent 34.2 g/dL (32.0-36.0) Red Cell Distribution Width 15.9 % (11.5-14.5) Mean Platelet Volume 7.9 fL (7.2-11.1) Neutrophils (%) (Auto) 61.9 % (39.4-72.5) Lymphocytes (%) (Auto) 27.3 % (17.6-49.6) Monocytes (%) (Auto) 5.6 % (4.1-12.4) Eosinophils (%) (Auto) 4.3 % (0.4-6.7) Basophils (%) (Auto) 0.9 % (0.3-1.4) Nucleated RBC Relative Count (auto) 0.1 /100WBC Neutrophils # (Auto) 4.1 K/uL (2.0-7.4) Lymphocytes # (Auto) 1.8 K/uL (1.3-3.6) Monocytes # (Auto) 0.4 K/uL (0.3-1.0) Eosinophils # (Auto) 0.3 K/uL (0.0-0.5) Basophils # (Auto) 0.1 K/uL (0.0-0.1) Nucleated RBC Absolute Count (auto) 0.00 K/uL Sodium Level 136 mmol/L (137-145) Potassium Level 3.4 mmol/L (3.5-5.0) Chloride Level 103 mmol/L (98-107) Carbon Dioxide Level 20 mmol/L (22-31) Blood Urea Nitrogen 17 mg/dl (7-18) Creatinine 0.80 mg/dl (0.52-1.04) Glomerular Filtration Rate Calc > 60.0 Random Glucose 263 mg/dl (75-110) Calcium Level 9.1 mg/dl (8.4-10.2) Total Bilirubin 0.6 mg/dl (0.2-1.3) Aspartate Amino Transf (AST/SGOT) 18 U/L (0-35) Alanine Aminotransferase (ALT/SGPT) 21 U/L (0-56) Alkaline Phosphatase 114 U/L (0-126) Total Creatine Kinase 112 U/L (30-135) Total Protein 6.3 gm/dl (6.3-8.2) Albumin 3.6 g/dl (3.5-5.0) Amylase Level 47 U/L (0-110) Lipase 110 U/L (23-300) Chemistry Test 09/16/17 01:40 09/16/17 02:15 Urine Color Yellow Urine Clarity Slightly-cloudy Urine pH 5.0 pH (4.8-9.5) Urine Specific [place] 1.004 Urine Protein 100 mg/dL (NEGATIVE) Urine Glucose (UA) 50 mg/dL (NEGATIVE) Urine Ketones Negative mg/dL (NEGATIVE) Urine Blood Moderate (NEGATIVE) Urine Nitrite Negative (NEGATIVE) Urine Bilirubin Negative (NEGATIVE) Urine Urobilinogen Negative mg/dL (0.2-1.9) Urine Leukocyte Esterase Trace (NEGATIVE) Urine RBC <1 /HPF (0-2/HPF) Urine WBC 4 /HPF (0-5/HPF) Urine Squamous Epithelial Cells Many /LPF (NONE-FEW) Urine Amorphous Crystals Moderate /HPF Urine Bacteria Few /HPF (NONE-FEW) Urine Mucus None /HPF (NONE-FEW) Stool Occult Blood (IFOB) Positive (NEGATIVE) Stool Leukocytes, Qualitative Positive Clostridium Difficile Toxin A & B Negative Clostridium difficile Antigen Negative White Blood Count 6.6 k/uL (4.5-11.0) Red Blood Count 4.17 M/uL (4.17-5.56) Hemoglobin 11.4 g/dL (12.0-16.0) Hematocrit 33.5 % (34.0-47.0) Mean Corpuscular Volume 80.3 fL (80.0-96.0) Mean Corpuscular Hemoglobin 27.5 pg (26.0-33.0) Mean Corpuscular Hemoglobin Concent 34.2 g/dL (32.0-36.0) Red Cell Distribution Width 15.9 % (11.5-14.5) Platelet Count 202 K/uL (150-450) Mean Platelet Volume 7.9 fL (7.2-11.1) Neutrophils (%) (Auto) 61.9 % (39.4-72.5) Lymphocytes (%) (Auto) 27.3 % (17.6-49.6) Monocytes (%) (Auto) 5.6 % (4.1-12.4) Eosinophils (%) (Auto) 4.3 % (0.4-6.7) Basophils (%) (Auto) 0.9 % (0.3-1.4) Nucleated RBC Relative Count (auto) 0.1 /100WBC Neutrophils # (Auto) 4.1 K/uL (2.0-7.4) Lymphocytes # (Auto) 1.8 K/uL (1.3-3.6) Monocytes # (Auto) 0.4 K/uL (0.3-1.0) Eosinophils # (Auto) 0.3 K/uL (0.0-0.5) Basophils # (Auto) 0.1 K/uL (0.0-0.1) Nucleated RBC Absolute Count (auto) 0.00 K/uL Glomerular Filtration Rate Calc > 60.0 Calcium Level 9.1 mg/dl (8.4-10.2) Total Bilirubin 0.6 mg/dl (0.2-1.3) Aspartate Amino Transf (AST/SGOT) 18 U/L (0-35) Alanine Aminotransferase (ALT/SGPT) 21 U/L (0-56) Alkaline Phosphatase 114 U/L (0-126) Total Creatine Kinase 112 U/L (30-135) Total Protein 6.3 gm/dl (6.3-8.2) Albumin 3.6 g/dl (3.5-5.0) Amylase Level 47 U/L (0-110) Lipase 110 U/L (23-300) Urinalysis Test 09/16/17 01:40 Urine Color Yellow Urine Clarity Slightly-cloudy Urine pH 5.0 pH (4.8-9.5) Urine Specific [place] 1.004 Urine Protein 100 mg/dL (NEGATIVE) Urine Glucose (UA) 50 mg/dL (NEGATIVE) Urine Ketones Negative mg/dL (NEGATIVE) Urine Blood Moderate (NEGATIVE) Urine Nitrite Negative (NEGATIVE) Urine Bilirubin Negative (NEGATIVE) Urine Urobilinogen Negative mg/dL (0.2-1.9) Urine Leukocyte Esterase Trace (NEGATIVE) Urine RBC <1 /HPF (0-2/HPF) Urine WBC 4 /HPF (0-5/HPF) Urine Squamous Epithelial Cells Many /LPF (NONE-FEW) Urine Amorphous Crystals Moderate /HPF Urine Bacteria Few /HPF (NONE-FEW) Urine Mucus None /HPF (NONE-FEW) Microbiology Microbiology Date/Time Source Procedure Growth Status 09/16/17 01:40 Stool Gram Stain - Final Resulted 09/16/17 01:40 Stool Stool Culture Pending Resulted ED Course/Re-evaluation Clinical Indication for ER IV: Hydration, IV Access ED Course Patient was admitted to an examination room. H&P was done. Patient was treated with IV fluids. Repeat diagnostic studies are performed. Patient had extensive testing one week ago including a CT of the abdomen. Repeat stool studies tonight showed white blood cells in the diarrhea suggesting infectious diarrhea. Patient be treated with Cipro and Flagyl. Patient's advised to follow-up with her primary care if unimproved in 3-5 days. Patient states she has an appointment next Thursday for follow-up Decision to Disposition Date: Sep 16, 2017 Decision to Disposition Time: 03:15 Depart Departure Latest Vital Signs Vital Signs Date Time Temp Pulse Resp B/P (MAP) Pulse Ox O2 Delivery O2 Flow Rate FiO2 09/16/17 04:01 60 17 165/62 (96) 92 09/16/17 01:18 97.6 Room Air Impression: Primary Impression: Infectious diarrhea Condition: Improved Disposition: HOME OR SELF-CARE Referrals: SY FARAH DO (PCP) New Scripts Ondansetron Hcl (ZOFRAN) 4 Mg Tablet 4 MG PO Q6H Y for NAUSEA/VOMITING, #12 Prov: MONICA MCFARLAND DO 09/16/17 Metronidazole (FLAGYL) 500 Mg Tablet 500 MG PO BID for infection, #14 TAB Prov: MONICA MCFARLAND DO 09/16/17 Ciprofloxacin Hcl (CIPRO) 500 Mg Tablet 500 MG PO BID for infection, #14 Prov: MONICA MCFARLAND DO 09/16/17 Patient Instructions: Chronic Diarrhea (ED) Additional Instructions: Follow-up with your primary care doctor if unimproved in one week Increase your fluid intake MONICA MCFARLAND DO Sep 16, 2017 01:20
[2017-09-16] MEDS ORDERED: NS(*) 0.9% 1000 ML BAG 1,000 ML IV ONE (01:21)
[2017-09-16] MEDS ORDERED: EMS NS 0.9%(*) 1000 ML BAG 1,000 ML IV ONE (01:50)
[2017-09-16] MEDS ORDERED: ONDANSETRON 4 MG/2 ML VIAL IVP ONE (02:00)
[2017-09-16 02:28] LABS: PLATELET COUNT, AUTOMATED 202 K/uL (150-450)
[2017-09-16] MEDS ORDERED: METRONIDAZOLE 500 MG TABLET PO ONE (03:05)
[2017-09-16] MEDS ORDERED: KETOROLAC 30 MG/ML VIAL IVP ONE (03:05)
[2017-09-16] MEDS ORDERED: CIPROFLOXACIN 500 MG TAB PO ONE (03:05)
[2017-09-16] MEDS ORDERED: fentaNYL CITR 100 MCG/2 ML AMP IVP ONE (03:05)
[2017-09-16] MEDS ORDERED: CIPR-344 PO (03:16)
[2017-09-16] MEDS ORDERED: METR-1 PO (03:16)
[2017-09-16] MEDS ORDERED: ONDA4TAB97 PO (03:16)
[2017-09-16 04:01] VITALS: BP 165/62
[2017-09-16] MEDS ORDERED: KETOROLAC 60 MG/2 ML VIAL IM ONE (04:15)
== END 2017-09-16 04:01 | disposition home or self-care (01) ==
LOC: ER 01:23
DX: A09 Infectious gastroenteritis and colitis, unspecified (principal)
CPT/HCPCS: 81001; 82150; 82274; 82550; 83630; 83690; 85025; 87045; 87177; 87205; 87324; 87449; 96361; 96372; 96374; 99283; A4353; A9270; J1885; J2405; 82040; 82247; 82310; 82374; 82435; 82565; 82947; 84075; 84132; 84155; 84295; 84450; 84460; 84520

== ENCOUNTER → 2017-09-16 | Outpatient (CLI) | payer MEDICARE, MEDICAID ==
[~2017-09-16] MED LIST changes: +AMLO2.5T74 PO; +CIPR-344 PO; +DIPH-543 PO; +INSU100I10; +INSU300I SUBQ; +LEVO-85 PO; +METR-1 PO; +OMEP40CA48 PO; +ONDA4TAB97 PO; +OXYC-373 PO; +SUCR1TAB85 PO
== END ==
LOC: AMB 00:37
PROVIDERS: ATTEND Nurse Practitioner
DX: R10.11 Right upper quadrant pain (principal); R19.7 Diarrhea, unspecified
CPT/HCPCS: A0425; A0427

== ENCOUNTER → 2017-09-16 | Outpatient (CLI) | payer MEDICARE, MEDICAID | LOC: AMB 03:50 | PROVIDERS: ATTEND Nurse Practitioner | DX: R10.9 Unspecified abdominal pain (principal) | CPT/HCPCS: A0425; A0428 ==

== ENCOUNTER 2017-09-20 14:23 | Inpatient (IN) | payer MEDICARE, MEDICAID ==
[~2017-09-20] VITALS: Ht 160 cm; Wt 108.9 kg
[~2017-09-20 14:23] MED LIST changes: +CIPR-344 PO; +METR-1 PO; +ONDA4TAB97 PO
--- NOTE | 2017-09-20 14:25 | ER Report ---
History and Physical Time Seen By MD: 14:24 HPI/ROS This is a 57-year-old female with a history of multiple medical problems to include recent orthopedic injuries and a short stay in a senior care facility for rehabilitation. While she was in the nursing facility she developed loose bowel movements. She was seen in the emergency department for this. She has had multiple stool studies to include 2 sets of C. difficile and other stool cultures all which are negative. He went to the urgent care today saying that her sister is darker and was worried that she is bleeding and also complaining of abdominal pain. She had a CT scan in August which showed a possible cholecystitis, so the urgent care provider was concerned that her cholecystitis had progressed. She reports decreased by mouth for the past 3-4 weeks, because she experiences diarrhea every time she eats. There is no travel history. No fever or chills. She has a history of a back injury and both urinary and bowel incontinence which has complicated the matter. She is scheduled for colonoscopy with Dr. Kevin next Thursday, but could not wait due to worsening loose bowel movements as well as worsening pain. Allergies: Coded Allergies: Penicillins (Verified Allergy, Intermediate, HIVES, 09/20/17) Home Meds Active Scripts Ondansetron Hcl (ZOFRAN) 4 Mg Tablet, 4 MG PO Q6H Y for NAUSEA/VOMITING, #12 Prov:MONICA MCFARLAND DO 09/16/17 Metronidazole (FLAGYL) 500 Mg Tablet, 500 MG PO BID for infection, #14 TAB Prov:MONICA MCFARLAND DO 09/16/17 Ciprofloxacin Hcl (CIPRO) 500 Mg Tablet, 500 MG PO BID for infection, #14 Prov:MONICA MCFARLAND DO 09/16/17 Sucralfate (CARAFATE) 1 Gm Tablet, 1 GM PO QID, #60 TAB Take before meals and at bedtime. Crush the tablet and mix with water before taking. Prov:VALORIE RAINEY [facility] 09/10/17 Omeprazole (OMEPRAZOLE) 40 Mg Capsule., 40 MG PO QDAY, #30 CAP Prov:VALORIE RAINEY [facility] 09/10/17 Reported Medications Insulin Glargine,Hum.rec.anlog (Basaglar Kwikpen U-100) 100 Unit/Ml (3 Ml) Insuln.pen 09/10/17 Metformin Hcl (METFORMIN HCL) 500 Mg Tablet, 1 TAB PO BID, TAB 07/19/17 Lisinopril (LISINOPRIL) 10 Mg Tablet, 10 MG PO QDAY, TAB 07/19/17 Levothyroxine Sodium (LEVOTHYROXINE SODIUM) 50 Mcg Tablet, 25 MCG PO QDAY, TAB 07/19/17 Simvastatin (SIMVASTATIN) 20 Mg Tablet, 10 MG PO HS, TAB 07/19/17 Discontinued Reported Medications Oxycodone Hcl/Acetaminophen (OXYCODONE-ACETAMINOPHEN 5-325) 1 Each Tablet, 1 EACH PO, TAB 09/10/17 Reviewed Nurses Notes: Yes Old Medical Records Reviewed: Yes Hx Smoking: No Hx Substance Use Disorder: No Hx Alcohol Use: Yes (OCC) Constitutional Vital Sign - Last 24 Hours 09/20/17 14:31 Temp 97.9 Pulse 63 Resp 20 B/P (MAP) 145/75 Pulse Ox 95 O2 Delivery Room Air Intake and Output 09/20/17 09/20/17 09/21/17 14:59 22:59 06:59 Output Total 30 ml Balance -30 ml Physical Exam General Appearance: The patient is alert, has no immediate need for airway protection and no current signs of toxicity. Eyes: Pupils equal and round no injection. Respiratory: Chest is non tender, lungs are clear to auscultation. Cardiac: regular rate and rhythm Gastrointestinal: Abdomen is soft with diffuse TTP but more so in the RUQ and RLQ Extremities have full range of motion and are non tender. Skin: No rashes or lesions. DIFFERENTIAL DIAGNOSIS: After history and physical exam differential diagnosis was considered for mesenteric ischemia, cholecystitis, appendicitis, colitis, infectious diarrhea Medical Decision Making Data Points Result Diagram: 09/20/17 1446 09/20/17 1446 Laboratory Hematology Test 09/20/17 00:00 09/20/17 14:46 09/20/17 15:45 09/20/17 16:54 Urine Random Creatinine 189.0 mg/dl Urine Random Sodium 16 MEQ/L Red Blood Count 4.54 M/uL (4.17-5.56) Mean Corpuscular Volume 80.0 fL (80.0-96.0) Mean Corpuscular Hemoglobin 26.9 pg (26.0-33.0) Mean Corpuscular Hemoglobin Concent 33.7 g/dL (32.0-36.0) Red Cell Distribution Width 16.0 % (11.5-14.5) Mean Platelet Volume 7.9 fL (7.2-11.1) Neutrophils (%) (Auto) 65.8 % (39.4-72.5) Lymphocytes (%) (Auto) 23.8 % (17.6-49.6) Monocytes (%) (Auto) 5.0 % (4.1-12.4) Eosinophils (%) (Auto) 4.2 % (0.4-6.7) Basophils (%) (Auto) 1.2 % (0.3-1.4) Nucleated RBC Relative Count (auto) 0.0 /100WBC Neutrophils # (Auto) 5.0 K/uL (2.0-7.4) Lymphocytes # (Auto) 1.8 K/uL (1.3-3.6) Monocytes # (Auto) 0.4 K/uL (0.3-1.0) Eosinophils # (Auto) 0.3 K/uL (0.0-0.5) Basophils # (Auto) 0.1 K/uL (0.0-0.1) Nucleated RBC Absolute Count (auto) 0.00 K/uL Prothrombin Time 15.2 seconds (12.0-14.4) Prothromb Time International Ratio 1.19 Activated Partial Thromboplast Time 38 seconds (23-35) Sodium Level 141 mmol/L (137-145) Potassium Level 3.7 mmol/L (3.5-5.0) Chloride Level 107 mmol/L (98-107) Carbon Dioxide Level 19 mmol/L (22-31) Blood Urea Nitrogen 18 mg/dl (7-18) Creatinine 1.70 mg/dl (0.52-1.04) Glomerular Filtration Rate Calc 31.2 Random Glucose 173 mg/dl (75-110) Calcium Level 9.3 mg/dl (8.4-10.2) Total Bilirubin 0.6 mg/dl (0.2-1.3) Aspartate Amino Transf (AST/SGOT) 21 U/L (0-35) Alanine Aminotransferase (ALT/SGPT) 26 U/L (0-56) Alkaline Phosphatase 114 U/L (0-126) Total Protein 6.5 gm/dl (6.3-8.2) Albumin 3.7 g/dl (3.5-5.0) Lipase 67 U/L (23-300) Urine Color [place] Urine Clarity Cloudy Urine pH 5.0 pH (4.8-9.5) Urine Specific [place] 1.015 Urine Protein 100 mg/dL (NEGATIVE) Urine Glucose (UA) Negative mg/dL (NEGATIVE) Urine Ketones Negative mg/dL (NEGATIVE) Urine Blood Negative (NEGATIVE) Urine Nitrite Negative (NEGATIVE) Urine Bilirubin Negative (NEGATIVE) Urine Urobilinogen 2.0 mg/dL (0.2-1.9) Urine Leukocyte Esterase Small (NEGATIVE) Urine RBC 3 /HPF (0-2/HPF) Urine WBC 12 /HPF (0-5/HPF) Urine Squamous Epithelial Cells Many /LPF (NONE-FEW) Urine Amorphous Crystals Few /HPF Urine Bacteria Negative /HPF (NONE-FEW) Urine Hyaline Casts Moderate /LPF (NONE-FEW) Urine Mucus Few /HPF (NONE-FEW) Lactate 1.2 mmol/L (0.7-2.1) Chemistry Test 09/20/17 00:00 09/20/17 14:46 09/20/17 15:45 09/20/17 16:54 Urine Random Creatinine 189.0 mg/dl Urine Random Sodium 16 MEQ/L White Blood Count 7.5 k/uL (4.5-11.0) Red Blood Count 4.54 M/uL (4.17-5.56) Hemoglobin 12.2 g/dL (12.0-16.0) Hematocrit 36.3 % (34.0-47.0) Mean Corpuscular Volume 80.0 fL (80.0-96.0) Mean Corpuscular Hemoglobin 26.9 pg (26.0-33.0) Mean Corpuscular Hemoglobin Concent 33.7 g/dL (32.0-36.0) Red Cell Distribution Width 16.0 % (11.5-14.5) Platelet Count 258 K/uL (150-450) Mean Platelet Volume 7.9 fL (7.2-11.1) Neutrophils (%) (Auto) 65.8 % (39.4-72.5) Lymphocytes (%) (Auto) 23.8 % (17.6-49.6) Monocytes (%) (Auto) 5.0 % (4.1-12.4) Eosinophils (%) (Auto) 4.2 % (0.4-6.7) Basophils (%) (Auto) 1.2 % (0.3-1.4) Nucleated RBC Relative Count (auto) 0.0 /100WBC Neutrophils # (Auto) 5.0 K/uL (2.0-7.4) Lymphocytes # (Auto) 1.8 K/uL (1.3-3.6) Monocytes # (Auto) 0.4 K/uL (0.3-1.0) Eosinophils # (Auto) 0.3 K/uL (0.0-0.5) Basophils # (Auto) 0.1 K/uL (0.0-0.1) Nucleated RBC Absolute Count (auto) 0.00 K/uL Prothrombin Time 15.2 seconds (12.0-14.4) Prothromb Time International Ratio 1.19 Activated Partial Thromboplast Time 38 seconds (23-35) Glomerular Filtration Rate Calc 31.2 Calcium Level 9.3 mg/dl (8.4-10.2) Total Bilirubin 0.6 mg/dl (0.2-1.3) Aspartate Amino Transf (AST/SGOT) 21 U/L (0-35) Alanine Aminotransferase (ALT/SGPT) 26 U/L (0-56) Alkaline Phosphatase 114 U/L (0-126) Total Protein 6.5 gm/dl (6.3-8.2) Albumin 3.7 g/dl (3.5-5.0) Lipase 67 U/L (23-300) Urine Color Adrianna Urine Clarity Cloudy Urine pH 5.0 pH (4.8-9.5) Urine Specific [place] 1.015 Urine Protein 100 mg/dL (NEGATIVE) Urine Glucose (UA) Negative mg/dL (NEGATIVE) Urine Ketones Negative mg/dL (NEGATIVE) Urine Blood Negative (NEGATIVE) Urine Nitrite Negative (NEGATIVE) Urine Bilirubin Negative (NEGATIVE) Urine Urobilinogen 2.0 mg/dL (0.2-1.9) Urine Leukocyte Esterase Small (NEGATIVE) Urine RBC 3 /HPF (0-2/HPF) Urine WBC 12 /HPF (0-5/HPF) Urine Squamous Epithelial Cells Many /LPF (NONE-FEW) Urine Amorphous Crystals Few /HPF Urine Bacteria Negative /HPF (NONE-FEW) Urine Hyaline Casts Moderate /LPF (NONE-FEW) Urine Mucus Few /HPF (NONE-FEW) Lactate 1.2 mmol/L (0.7-2.1) Coagulation Test 09/20/17 14:46 Prothrombin Time 15.2 seconds Prothromb Time International Ratio 1.19 Activated Partial Thromboplast Time 38 seconds Urinalysis Test 09/20/17 00:00 09/20/17 15:45 Urine Random Creatinine 189.0 mg/dl Urine Random Sodium 16 MEQ/L Urine Color [place] Urine Clarity Cloudy Urine pH 5.0 pH (4.8-9.5) Urine Specific [place] 1.015 Urine Protein 100 mg/dL (NEGATIVE) Urine Glucose (UA) Negative mg/dL (NEGATIVE) Urine Ketones Negative mg/dL (NEGATIVE) Urine Blood Negative (NEGATIVE) Urine Nitrite Negative (NEGATIVE) Urine Bilirubin Negative (NEGATIVE) Urine Urobilinogen 2.0 mg/dL (0.2-1.9) Urine Leukocyte Esterase Small (NEGATIVE) Urine RBC 3 /HPF (0-2/HPF) Urine WBC 12 /HPF (0-5/HPF) Urine Squamous Epithelial Cells Many /LPF (NONE-FEW) Urine Amorphous Crystals Few /HPF Urine Bacteria Negative /HPF (NONE-FEW) Urine Hyaline Casts Moderate /LPF (NONE-FEW) Urine Mucus Few /HPF (NONE-FEW) EKG/Imaging Imaging Results: Ultrasound of the RUQ was obtained. The results of the study are gall bladder sludge normal. The study was read by the radiologist. I viewed the images myself on the PACS system. Results: CT scan of the abdomen and pelvis was obtained. The results of the study are sigmoid colitis and possible malignancy. The study was read by the radiologist. I viewed the images myself on the PACS system. ED Course/Re-evaluation ED Course 57-year-old female with ongoing worsening loose bowel movements for the past 3- 4 weeks. Today came to the emergency department from the urgent care due to increased diffuse abdominal pain. Her gallbladder is unremarkable, and CT scan is remarkable for a sigmoid colitis and a possible malignancy. Of note her creatinine has gone from 0.82 days ago to 1.7 today is likely due to fluid loss. Her pain is currently controlled. She will be admitted to the hospitalist service for IV fluid hydration, and the hospitalist service will discuss the surgery team the possibility of doing the colonoscopy sooner than next Thursday. Decision to Disposition Date: Sep 20, 2017 Decision to Disposition Time: 17:51 Depart Departure Latest Vital Signs Vital Signs Date Time Temp Pulse Resp B/P (MAP) Pulse Ox O2 Delivery O2 Flow Rate FiO2 09/20/17 14:31 97.9 63 20 145/75 95 Room Air Impression: Primary Impression: Acute colitis Additional Impression: Renal failure Condition: Improved Disposition: Admitted from ER Referrals: SY FARAH DO (PCP) Problem Qualifiers Additional Impression: Renal failure Renal failure chronicity: acute Acute renal failure type: unspecified Qualified Codes: N17.9 - Acute kidney failure, unspecified KIMBERLY SEVILLA MD Sep 20, 2017 14:25
[2017-09-20] MEDS ORDERED: ONDANSETRON 4 MG/2 ML VIAL IVP ONE (14:45)
[2017-09-20] MEDS ORDERED: NS(*) 0.9% 1000 ML BAG 1,000 ML IV ONE (14:45)
[2017-09-20] MEDS ORDERED: MORPHINE 4 MG/ML SDV IVP ONE (14:45)
[2017-09-20 14:58] LABS: PLATELET COUNT, AUTOMATED 258 K/uL (150-450)
[2017-09-20 15:00] LABS: INR 1.19
--- NOTE | 2017-09-20 16:35 | RADIOLOGY IMAGING REPORT ---
FACILITY: [facility] [place] PATIENT NAME: Mera Echevarria : 1960 MR: [id number] V: [id number] EXAM DATE: ORDERING PHYSICIAN: KIMBERLY SEVILLA TECHNOLOGIST: Location: [facility] Patient: Mera Echevarria : 1960 Visit/Account:[id number] Date of Sevice: 09/20/2017 EXAMINATION: Limited right upper quadrant ultrasound Additional Pertinent history: Right upper quadrant pain. COMPARISON STUDIES: CT of the abdomen pelvis on 09/10/2017. FINDINGS: Gallbladder: Small amount of layering sludge and tiny gallstones within the sludge. No wall thickenin g, pericholecystic fluid. Negative ultrasound Balderrama sign. Liver: negative Common duct: normal 6.2 mm. Pancreas: Obscured by bowel gas. Right kidney: negative Proximal IVC/Aorta: negative IMPRESSION: 1. The gallbladder does show small amount of layering sludge and tiny stones. No indication of cholec ystitis. 2. The pancreas is obscured by bowel gas. Report Dictated By: Tex Cano at 09/20/2017 4:29 PM Report E-Signed By: Tex Cano at 09/20/2017 4:33 PM WSN:[id number]
--- NOTE | 2017-09-20 17:13 | RADIOLOGY IMAGING REPORT ---
FACILITY: [facility] [place] PATIENT NAME: Mear Echevarria : 1960 MR: [id number] V: [id number] EXAM DATE: ORDERING PHYSICIAN: KIMBERLY SEVILLA TECHNOLOGIST: Location: [facility] [place] Patient: Mera Echevarria : 1960 Visit/Account:[id number] Date of Sevice: 09/20/2017 COMPUTED TOMOGRAPHY OF THE Abdomen and Pelvis without CONTRAST INDICATION: Diarrhea, right lower quadrant pain, right upper quadrant pain. TECHNIQUE: Contiguous axial 3.[address] images were obtained through the abdomen and pelvis without co ntrast. Coronal and sagittal reformatted images were submitted. COMPARISON: CT of September 10, 2017. FINDINGS: Lung bases: The lung bases are clear. Extensive cavitation in the region of the aortic annulus may co rrelate with aortic stenosis. Liver and hepatic vasculature: Limited parenchymal evaluation without contrast. No ascites. No appar ent focal lesion. Gallbladder and bile ducts: Some sludge layers dependently within the gallbladder. No findings of ch olecystitis. No biliary duct dilation. Spleen: Extensive splenic artery calcification. Borderline enlargement of the spleen. Pancreas: Pancreatic atrophy. No pancreatic duct dilation. No findings of pancreatitis. Adrenals: Normal Kidneys, ureters and bladder: No hydronephrosis or collecting system obstruction. The bladder wall a ppears thickened circumferentially. Retroperitoneum and aorta: Normal caliber aorta. Scattered atherosclerosis. GI tract, mesentery and peritoneum: There is a moderate-sized rectal stool ball. The sigmoid colon is redundant with suggestion of some wall thickening on for example series 2 image 110. There is strand ing in the mesentery in the left lower quadrant, but there are no findings of diverticulitis. There m ay also be an area of asymmetric wall thickening posteriorly in the rectal region. Stranding extends posterior to the rectosigmoid colon as well. Uterus and adnexa: The uterus is positioned right of midline adjacent to the bladder but is unremarka ble. Bones and soft tissues: Multilevel degenerative findings in the lumbar spine. Near-complete disc heig ht loss at L5-S1. Serpiginous sclerotic appearance within the femoral heads may reflect a history of avascular necrosis. However, the femoral heads remain spherical without subchondral collapse. IMPRESSION: 1. Sigmoid wall thickening and stranding in the left lower quadrant and posterior to the sigmoid colo n may represent colitis. 2. There is suggestion of thickening in the rectal region as well, and colonoscopy may be warranted t o exclude an underlying lesion. 3. Gallbladder sludge without findings of cholecystitis. 4. Extensive calcification in the region of the aortic annulus may correlate with a history of aortic stenosis. 5. Circumferential bladder wall thickening is exaggerated by incomplete filling, but correlate with u rinalysis and consider cystoscopy depending on history. One of the following dose optimization techniques was utilized in the performance of this exam: Autom ated exposure control; adjustment of the mA and/or kV according to the patient's size; or use of an i terative reconstruction technique. Specific details can be referenced in the facility's radiology C T exam operational policy. Report Dictated By: Kenia Hdz MD at 09/20/2017 4:54 PM Report E-Signed By: Kenia Hdz MD at 09/20/2017 5:09 PM WSN:[id number]
[2017-09-20 18:20] VITALS: BP 160/98
[2017-09-20] MEDS ORDERED: INSULIN HUM LISPRO 100 UN/ML 3 ML VIAL SUBQ PRN (18:20)
[2017-09-20] MEDS: KCL/NS* 20 MEQ/1000 ML PREMIX 1,000 ML IV SCH (18:34)
--- NOTE | 2017-09-20 19:40 | History & Physical ---
History of Present Illness Chief Complaint The patient is a 57 year old female with PMH significant for type II DM, hypothyroidism, and rectal incontinence due to previous ruptured L5 disc who presents with a month and a half of diarrhea. History of Present Illness The patient states the diarrhea started when she was at [facility] in rehabilitation after shattering her L femur due to a fall at home. She has since returned home. She continues to have diarrhea every time she eats and has not been able to drink well. She has had several stool studies including culture and C. diff that were negative. She was seen in the ER recently and started on Cipro and Flagyl. She states she has 2 days of antibiotics left but has seen no improvement in her symptoms. She has had chills but no fever. Today her stool appeared darker and she was afraid she may be bleeding. She has never had a screening colonoscopy. She has had occasional nausea. Her weight has decreased about 15 pounds over the past several months but she has not been eating well. She has type II DM and has taken metformin since 1995 without difficulty. In the ER, the patient was noted to be dehydrated with elevation of her creatinine to 1.7. US of the gallbladder was unremarkable. CT of the abdomen showed sigmoid wall thickening and stranding in the left lower quadrant and posterior to the sigmoid colon felt to possible represent colitis. Also noted was suggestion of thickening in the rectal region and the radiologist commented that "colonoscopy may be warranted to exclude an underlying lesion". The patient was recommended for admission for hydration and surgical consultation. History Problems: (1) Hypothyroidism Status: Chronic (2) Type II diabetes mellitus Status: Chronic (3) Perineal gangrene Comment: Multiple surgeries. (4) Endometriosis (5) Lumbar disc disease (6) Hx of section (7) History of bladder suspension procedure (8) History of lumbar surgery Comment: Some neurologic damage remains. (9) History of tubal ligation (10) History of cataract extraction (11) Femur fracture, left Home Meds Active Scripts Ondansetron Hcl (ZOFRAN) 4 Mg Tablet, 4 MG PO Q6H Y for NAUSEA/VOMITING, #12 Prov:MONICA MCFARLAND DO 09/16/17 Metronidazole (FLAGYL) 500 Mg Tablet, 500 MG PO BID for infection, #14 TAB Prov:MONICA MCFARLAND DO 18 Ciprofloxacin Hcl (CIPRO) 500 Mg Tablet, 500 MG PO BID for infection, #14 Prov:MONICA MCFARLAND 09/16/17 Sucralfate (CARAFATE) 1 Gm Tablet, 1 GM PO QID, #60 TAB Take before meals and at bedtime. Crush the tablet and mix with water before taking. Prov:VALORIE RAINEY [facility] 09/10/17 Omeprazole (OMEPRAZOLE) 40 Mg Capsule.dr, 40 MG PO QDAY, #30 CAP Prov:VALORIE RAINEY [facility] 09/10/17 Reported Medications Insulin Glargine,Hum.rec.anlog (Basaglar Kwikpen U-100) 100 Unit/Ml (3 Ml) Insuln.pen 09/10/17 Metformin Hcl (METFORMIN HCL) 500 Mg Tablet, 1 TAB PO BID, TAB 07/19/17 Lisinopril (LISINOPRIL) 10 Mg Tablet, 10 MG PO QDAY, TAB 07/19/17 Levothyroxine Sodium (LEVOTHYROXINE SODIUM) 50 Mcg Tablet, 25 MCG PO QDAY, TAB 07/19/17 Simvastatin (SIMVASTATIN) 20 Mg Tablet, 10 MG PO HS, TAB 07/19/17 Discontinued Reported Medications Oxycodone Hcl/Acetaminophen (OXYCODONE-ACETAMINOPHEN 5-325) 1 Each Tablet, 1 EACH PO, TAB 09/10/17 Allergies: Coded Allergies: Penicillins (Verified Allergy, Intermediate, HIVES, 09/20/17) Patient History: FH: COPD (chronic obstructive pulmonary disease) MOTHER, FH: diabetes mellitus MOTHER, BROTHER OR SISTER FHx: asthma FATHER, Other Social/Family Hx . Disabled. 3 children. Hx Smoking: No Hx Alcohol Use: Yes (OCC) Alcohol Use: Occassional Hx Substance Use Disorder: No Social Drug Use: Never History of IV Drug Use: No Review of Systems Constitutional: Weight Loss, Chills Neurological: Weakness, Other (Some numbness of feet due to L5 disc rupture. Also incontinent of stool and urine.) Gastrointestinal: Nausea, Diarrhea, Abdominal Pain, Other (Incontinent of stool.) Genitourinary: Urinary Incontinence Exam Vital Signs Vital Signs Date Time Temp Pulse Resp B/P (MAP) Pulse Ox O2 Delivery O2 Flow Rate FiO2 09/20/17 18:20 97.8 66 12 160/98 (118) 95 Room Air General Appearance: Alert, Awake, No Acute Distress Neuro: No Gross deficits Cardiovascular: Regular Rate and Rhythm Respiratory: Clear to Auscultation GI: Other (Abdomen soft, BS+. Tender R side to palpation. No palpable mass.) Extremities: Warm, Other (Trace edema, both LE.) Integumentary: Scaly / Dry Skin (Lower legs.) Psych: Appropriate Mood & Affect Medical Decision Making Data Points Result Diagram: 09/20/17 1446 09/20/17 144 Item Value Date Time Calcium Level 9.3 mg/dl 09/20/17 1446 Total Bilirubin 0.6 mg/dl 09/20/17 1446 Aspartate Amino Transf (AST/SGOT) 21 U/L 09/20/17 1446 Alanine Aminotransferase (ALT/SGPT) 26 U/L 09/20/17 1446 Alkaline Phosphatase 114 U/L 09/20/17 1446 Total Protein 6.5 gm/dl 09/20/17 1446 Albumin 3.7 g/dl 09/20/17 1446 Lipase 67 U/L 09/20/17 1446 Lactate 1.2 mmol/L 09/20/17 1654 Urine Random Creatinine 189.0 mg/dl 09/20/17 0000 Urine Random Sodium 16 MEQ/L 09/20/17 0000 Urine Color Adrianna 09/20/17 1545 Urine Clarity Cloudy 09/20/17 1545 Urine pH 5.0 pH 09/20/17 1545 Urine Specific Dupont 1.015 09/20/17 1545 Urine Protein 100 mg/dL 09/20/17 1545 Urine Glucose (UA) Negative mg/dL 09/20/17 1545 Urine Ketones Negative mg/dL 09/20/17 1545 Urine Blood Negative 09/20/17 1545 Urine Nitrite Negative 09/20/17 1545 Urine Bilirubin Negative 09/20/17 1545 Urine Urobilinogen 2.0 mg/dL 09/20/17 1545 Urine Leukocyte Esterase Small H 09/20/17 1545 Urine RBC 3 /HPF 09/20/17 1545 Urine WBC 12 /HPF 09/20/17 1545 Urine Squamous Epithelial Cells Many /LPF H 09/20/17 1545 Urine Amorphous Crystals Few /HPF 09/20/17 1545 Urine Bacteria Negative /HPF 09/20/17 1545 Urine Hyaline Casts Moderate /LPF H 09/20/17 1545 Urine Mucus Few /HPF 09/20/17 1545 Prothrombin Time 15.2 seconds H 09/20/17 1446 Prothromb Time International Ratio 1.19 09/20/17 1446 Activated Partial Thromboplast Time 38 seconds H 09/20/17 1446 Stool culture ordered. EKG / Imaging Imaging FACILITY: [facility] PATIENT NAME: Mera Echevarria : 1960 MR: [id number] V: [id number] EXAM DATE: ORDERING PHYSICIAN: KIMBERLY SEVILLA TECHNOLOGIST: Location: [facility] - [place], [place] Patient: Mera Echevarria : 1960 Visit/Account:[id number] Date of Sevice: 09/20/2017 COMPUTED TOMOGRAPHY OF THE Abdomen and Pelvis without CONTRAST INDICATION: Diarrhea, right lower quadrant pain, right upper quadrant pain. TECHNIQUE: Contiguous axial 3.[address] images were obtained through the abdomen and pelvis without contrast. Coronal and sagittal reformatted images were submitted. COMPARISON: CT of September 10, 2017. FINDINGS: Lung bases: The lung bases are clear. Extensive cavitation in the region of the aortic annulus may correlate with aortic stenosis. Liver and hepatic vasculature: Limited parenchymal evaluation without contrast. No ascites. No apparent focal lesion. Gallbladder and bile ducts: Some sludge layers dependently within the gallbladder. No findings of cholecystitis. No biliary duct dilation. Spleen: Extensive splenic artery calcification. Borderline enlargement of the spleen. Pancreas: Pancreatic atrophy. No pancreatic duct dilation. No findings of pancreatitis. Adrenals: Normal Kidneys, ureters and bladder: No hydronephrosis or collecting system obstruction. The bladder wall appears thickened circumferentially. Retroperitoneum and aorta: Normal caliber aorta. Scattered atherosclerosis. GI tract, mesentery and peritoneum: There is a moderate-sized rectal stool ball. The sigmoid colon is redundant with suggestion of some wall thickening on for example series 2 image 110. There is stranding in the mesentery in the left lower quadrant, but there are no findings of diverticulitis. There may also be an area of asymmetric wall thickening posteriorly in the rectal region. Stranding extends posterior to the rectosigmoid colon as well. Uterus and adnexa: The uterus is positioned right of midline adjacent to the bladder but is unremarkable. Bones and soft tissues: Multilevel degenerative findings in the lumbar spine. Near-complete disc height loss at L5-S1. Serpiginous sclerotic appearance within the femoral heads may reflect a history of avascular necrosis. However, the femoral heads remain spherical without subchondral collapse. IMPRESSION: 1. Sigmoid wall thickening and stranding in the left lower quadrant and posterior to the sigmoid colon may represent colitis. 2. There is suggestion of thickening in the rectal region as well, and colonoscopy may be warranted to exclude an underlying lesion. 3. Gallbladder sludge without findings of cholecystitis. 4. Extensive calcification in the region of the aortic annulus may correlate with a history of aortic stenosis. 5. Circumferential bladder wall thickening is exaggerated by incomplete filling , but correlate with urinalysis and consider cystoscopy depending on history. One of the following dose optimization techniques was utilized in the performance of this exam: Automated exposure control; adjustment of the mA and/ or kV according to the patient's size; or use of an iterative reconstruction technique. Specific details can be referenced in the facility's radiology CT exam operational policy. Report Dictated By: Kenia Hdz MD at 09/20/2017 4:54 PM Report E-Signed By: Kenia Hdz MD at 09/20/2017 5:09 PM WSN:[id number] FACILITY: [facility] PATIENT NAME: Mera Echevarria : 1960 MR: [id number] V: [id number] EXAM DATE: [id number] ORDERING PHYSICIAN: KIMBERLY SEVILLA TECHNOLOGIST: Location: [facility] - [place], [place] Patient: Mera Echevarria : 1960 Visit/Account:[id number] Date of Sevice: 09/20/2017 EXAMINATION: Limited right upper quadrant ultrasound Additional Pertinent history: Right upper quadrant pain. COMPARISON STUDIES: CT of the abdomen pelvis on 09/10/2017. FINDINGS: Gallbladder: Small amount of layering sludge and tiny gallstones within the sludge. No wall thickening, pericholecystic fluid. Negative ultrasound Balderrama sign. Liver: negative Common duct: normal 6.2 mm. Pancreas: Obscured by bowel gas. Right kidney: negative Proximal IVC/Aorta: negative IMPRESSION: 1. The gallbladder does show small amount of layering sludge and tiny stones. No indication of cholecystitis. 2. The pancreas is obscured by bowel gas. Report Dictated By: Tex Cano at 09/20/2017 4:29 PM Report E-Signed By: Tex Cano at 09/20/2017 4:33 PM WSN:[id number] Assessment and Plan Problems: (1) Acute colitis Status: Acute Assessment & Plan: CT shows possible colitis and/or mass. Will hydrate overnight and have surgery see in the am. Repeat stool cultures and C diff. She has been on Cipro and flagyl as an outpatient for 5 days with no improvement. Previous stool culture negative. Will hold antibiotics. (2) Dehydration Status: Acute Assessment & Plan: Hydrate overnight. Recheck labs in am. (3) Renal failure Status: Acute Assessment & Plan: Creatinine 1.7 due to dehydration. See above. (4) Type II diabetes mellitus Status: Chronic Assessment & Plan: Will continue insulin glargine at 25u per HS. SSI in addition. Hold metformin for now. (5) Hypothyroidism Status: Chronic Assessment & Plan: Continue levothyroxine. Check TSH. Time Spent on Plan of Care: < 30 min Copies to: KASIA KHAN PA-C Venous Thromboembolism Antithrombotics Is Pt On Any Antithrombotics?: No Prophylaxis Tx Contraindicated Pharmacological Contraindicati: Medical Contraindication Exam Sepsis Risk: No Definite Risk Problem Qualifiers (1) Renal failure: Renal failure chronicity: acute Acute renal failure type: unspecified Qualified Codes: N17.9 - Acute kidney failure, unspecified MALIKA NGO MD Sep 20, 2017 19:40
[2017-09-20] MEDS ORDERED: INSU300I SUBQ (20:33)
[2017-09-20] MEDS: SIMVASTATIN 20 MG TAB PO SCH (21:55)
[2017-09-20] MEDS: SUCRALFATE 1 GM TAB PO SCH (21:55)
[2017-09-20] MEDS: INSULIN GLARGINE 100 U/ML 3 ML PEN SUBQ SCH (21:56)
[2017-09-20 22:09] VITALS: BP 147/56
[2017-09-21 02:54] VITALS: BP 121/44
[2017-09-21] MEDS: KCL/NS* 20 MEQ/1000 ML PREMIX 1,000 ML IV SCH ×3 (04:00→19:58)
[2017-09-21 05:57] LABS: PLATELET COUNT, AUTOMATED 185 K/uL (150-450)
[2017-09-21] MEDS: LEVOTHYROXINE SOD 0.05 MG TAB PO SCH (06:27)
[2017-09-21 08:08] VITALS: BP 208/44
--- NOTE | 2017-09-21 08:23 | General Surgery Consultation ---
History of Present Illness Requesting Physician dr andrea peters Reason for Consult abnormal ct of colon and rectum Chief Complaint diarrhea History of Present Illness 57 yo female with a 6 week history of diarrhea. seen in ed stool culture and oand p and c diff were neg. treated with antibiotics without relief. she has some right sided abdominal apin with eating but she describes it as low in her abdomen. no red blood in stool. no history of colonoscopy. pt had ultrasound which reveals small gallstones but no inflammation. she had a ct which suggests some thickening in the rectum and sigmoid colon. History Home Meds Active Scripts Metronidazole (FLAGYL) 500 Mg Tablet, 500 MG PO BID for infection, #14 TAB Prov:MONICA MCFARLAND DO 09/16/17 Ciprofloxacin Hcl (CIPRO) 500 Mg Tablet, 500 MG PO BID for infection, #14 Prov:MONICA MCFARLAND DO 09/16/17 Sucralfate (CARAFATE) 1 Gm Tablet, 1 GM PO QID, #60 TAB Take before meals and at bedtime. Crush the tablet and mix with water before taking. Prov:VALORIE RAINEY [facility] 09/10/17 Omeprazole (OMEPRAZOLE) 40 Mg Capsule., 40 MG PO QDAY, #30 CAP Prov:VALORIE RAINEY [facility] 09/10/17 Reported Medications Insulin Glargine,Hum.rec.anlog (Toujeo Solostar) 300 Unit/1 Ml Insuln.pen, 35 SUBQ HS 09/20/17 Metformin Hcl (METFORMIN HCL) 500 Mg Tablet, 1 TAB PO BID, TAB 07/19/17 Lisinopril (LISINOPRIL) 10 Mg Tablet, 10 MG PO QDAY, TAB 07/19/17 Levothyroxine Sodium (LEVOTHYROXINE SODIUM) 50 Mcg Tablet, 25 MCG PO QDAY, TAB 07/19/17 Simvastatin (SIMVASTATIN) 20 Mg Tablet, 10 MG PO HS, TAB 07/19/17 Discontinued Reported Medications Insulin Glargine,Hum.rec.anlog (Basaglar Kwikpen U-100) 100 Unit/Ml (3 Ml) Insuln.pen 09/10/17 Oxycodone Hcl/Acetaminophen (OXYCODONE-ACETAMINOPHEN 5-325) 1 Each Tablet, 1 EACH PO, TAB 09/10/17 Discontinued Scripts Ondansetron Hcl (ZOFRAN) 4 Mg Tablet, 4 MG PO Q6H Y for NAUSEA/VOMITING, #12 Prov:MONICA MCFARLAND DO 09/16/17 Allergies: Coded Allergies: Penicillins (Verified Allergy, Intermediate, HIVES, 09/20/17) Family History: FH: COPD (chronic obstructive pulmonary disease) MOTHER, FH: diabetes mellitus MOTHER, BROTHER OR SISTER FHx: asthma FATHER, Review of Systems Constitutional: Weight Loss Gastrointestinal: Diarrhea Other diabetes, femur fracture Exam Vital Signs Vital Signs Date Time Temp Pulse Resp B/P (MAP) Pulse Ox O2 Delivery O2 Flow Rate FiO2 09/21/17 08:08 97.9 63 16 208/44 (98) 98 09/21/17 02:54 Nasal Cannula 0.5 General Appearance: Alert, Awake, No Acute Distress GI: Abd Soft and Non-Tender Medical Decision Making Data Points Result Diagram: 09/21/17 0513 09/21/17 0513 Assessment and Plan Problems: (1) Diarrhea Assessment & Plan: will do colonoscopy to evaluate the ct findings in the colon and rectum. may need cholecystectomy for cholelithiasis Copies to: SAMUEL PICKETT MD Venous Thromboembolism Antithrombotics Is Pt On Any Antithrombotics?: No SAMUEL PICKETT MD Sep 21, 2017 08:23
--- NOTE | 2017-09-21 08:26 | Hospitalist Progress Note ---
Subjective Progress Notes Subjective She reports continued diarrheal stools and some episodic abdominal pain. No fever. Physical Exam Vital Signs Date Time Temp Pulse Resp B/P (MAP) Pulse Ox O2 Delivery O2 Flow Rate FiO2 09/21/17 08:08 97.9 63 16 208/44 (98) 98 09/21/17 02:54 Nasal Cannula 0.5 Intake and Output 09/22/17 07:00 Output Total 50 ml Balance -50 ml Output Urine Total 50 ml General Appearance: Alert, Awake Cardiovascular: Regular Rate and Rhythm Respiratory: Clear to Auscultation GI: Other (soft with some reported tenderness on palpation/BS present ) Result Diagram: 09/21/1751209/21/17512 Assessment and Plan Problems: (1) Acute colitis Status: Acute Assessment & Plan: CT shows possible colitis and/or underlying mass. Stool cultures negative x2 (another pending) and Clostridium difficile negative x3. She had been on Cipro and Flagyl as an outpatient for 5 days with no improvement - now stopped. Dr. Verdugo has seen her and plan is for endoscopy tomorrow AM. (2) Dehydration Status: Acute Assessment & Plan: Due to diarrhea. On IV fluids. Monitor labs. (3) Renal failure Status: Acute Assessment & Plan: Due to dehydration. Creatinine is unchanged at 1.7 today. Watch labs. See above. (4) Type II diabetes mellitus Status: Chronic Assessment & Plan: Will continue Lantus at 25u per HS (1/2 dose tonight). Will SSI as needed. Hold metformin for now. (5) Hypothyroidism Status: Chronic Assessment & Plan: Continue levothyroxine. TSH pending. Exam Sepsis Risk: No Definite Risk Problem Qualifiers (1) Renal failure: Renal failure chronicity: acute Acute renal failure type: unspecified Qualified Codes: N17.9 - Acute kidney failure, unspecified TERRY NGO MD Sep 21, 2017 08:26
[2017-09-21] MEDS: PANTOPRAZOLE SOD 40 MG IV VIAL IVP SCH (08:54)
[2017-09-21] MEDS: SUCRALFATE 1 GM TAB PO SCH ×4 (08:54→21:06)
[2017-09-21] MEDS ORDERED: LISINOPRIL 10 MG TAB PO SCH (09:00)
[2017-09-21 10:44] VITALS: BP 144/59
[2017-09-21] MEDS ORDERED: METOCLOPRAMIDE 10 MG TAB PO ONE (13:00)
[2017-09-21] MEDS ORDERED: BISACODYL 5 MG TABEC PO ONE (13:00)
--- NOTE | 2017-09-21 13:44 | Medical Nutrition Therapy ---
Nutrition Anthropometrics Height (Inches): 63.00 Height (Calculated Centimeters: 160.145803 Weight (Pounds): 240 Weight (Calculated Kilograms): 108.862 Cordell Nutrition Score: Probably Inadequate Cordell Nutrition Risk Score: 14 Dietary Referral Nutrition Risk Factors: Unplanned Loss >10lbs Nutrition Risk Comment: Physical Findings Physical Appearance: Morbidly Obese 40+ Skin Appearance Skin Appearance: Edema Edema Location Modifier: Both Edema Location: Lower Extremity Type of Edema: Degree of Edema: Gastrointestinal Symptoms GI Symtoms: Appetite Changes, Diarrhea, Weight Changes, Change in Bowel Pattern Tube Present: Bowel Sounds: Recent Bowel Pattern: Diarrhea Stool Characteristics: Brown, Soft Nutritional Diagnosis Nutritional Risk Acuity 2: V/D > 3 Days, Pr Appetite > 3d, Chronic Renal Failure Nutritional Risk Acuity 3: Morbid Obesity (BMI 42) Past Medical History: T2DM, hyperglycemia, GI bleed, infectious diarrhea, hypothyroid, renal failure, acute colitis Nutritional Acuity: 2-Moderate Nutrition Diagnosis: Inadequate Fluid Intake Nutrition Etiology: Physiological Causes Nutrition Problem/Etiology/Sym: Inadequate fluid intake related to physiological causes as evidence by creatinine (1.7). Energy Requirement: 1632 (Hendricks Mcclure adj REE BMI >27.5 ) Protein Requirement: 86 (.8g/kg ) Fluid Requirement: 3240 (30ml/kg ) Diet Type: Clear Liquids, Diabetic Nutrition Intervention: Encourage intake, Change diet (ADA) Nutrition Monitoring & Eval Nutrition Goals: Eat 75-100% Meal RD Patient Assessment Time: [address] Assessment Type: RD Assessment Patient Nutrition Acuity: 2-Moderate Follow Up Date: Sep 24, 2017 Nutritional Comment: 09/21 Pt admitted for renal failure. Pt is on clear liquid diet with no food consumption at this time. Pt states that she has been experiencing abdominal pain and severe diarrhea. Pt states that she has unable to eat for 3-4 weeks because nothing stays in and has lost a lot of wt. However based on the past 2 months medical visits, pt is within her normal wt range. Pt has a hx of GI bleeds and 6 week history of diarrhea. Pt was tested for c.dif test results came back neg. Pt does have acute colitis. CT shows possible colitis and/or underlying mass. Pt is scheduled for a colostomy next Thursday. CT shows possible colitis and/or underlying mass. Notable labs alb (2.5), RBC (3.89) and creatinine (1.7) possibly caused by dehydration. Will continue to monitor pt progress, labs, diet advancement and encourage intake. -ARNOL FORRESTER Sep 21, 2017 11:03
[2017-09-21] MEDS ORDERED: MAGNESIUM CITRATE 300 ML BTL PO ONE ×2 (14:00→17:00)
[2017-09-21 16:55] VITALS: BP 142/69
[2017-09-21 19:25] VITALS: BP 140/66
[2017-09-21] MEDS ORDERED: INSULIN GLARGINE 100 U/ML 3 ML PEN SUBQ ONE (21:00)
[2017-09-21] MEDS: SIMVASTATIN 20 MG TAB PO SCH (21:06)
[2017-09-21 23:35] VITALS: BP 122/66
[2017-09-22] VITALS (12 sets, daily range): BP systolic 110–170; BP diastolic 53–96
[2017-09-22] MEDS: KCL/NS* 20 MEQ/1000 ML PREMIX 1,000 ML IV SCH ×3 (03:48→22:32)
[2017-09-22] MEDS ORDERED: NORMOSOL R SOLN(*) 1000 ML BAG 1,000 ML IV ONE (05:45)
[2017-09-22] MEDS: LEVOTHYROXINE SOD 0.05 MG TAB PO SCH (05:52)
[2017-09-22 06:08] LABS: PLATELET COUNT, AUTOMATED 184 K/uL (150-450)
--- NOTE | 2017-09-22 08:08 | Post Operative Progress Note ---
Post Operative Progress Note Date: Sep 22, 2017 Time: 09:36 Surgeon: denise Anesthesia: dr thapa Pre-Op Diagnosis: abnormal ct scan colon and rectum Post-Op Diagnosis: normal colonoscopy Procedure(s): colonoscopy and biopsy SAMUEL PICKETT MD Sep 22, 2017 08:08
[2017-09-22] MEDS ORDERED: PROPOFOL EMUL(*) 10MG/ML 20 ML 40 ML ONE (08:53)
[2017-09-22] MEDS ORDERED: LIDOCAINE MPF 1% 5 ML VIAL ONE (09:00)
[2017-09-22] MEDS ORDERED: DIPHENOX/ATROPINE 2.5-0.025MG PO ONE (10:35)
--- NOTE | 2017-09-22 10:51 | Hospitalist Progress Note ---
Subjective Progress Notes Subjective Mrs. Echevarria is a 57 year old female with PMH significant for type II DM, hypothyroidism, and rectal incontinence due to previous ruptured L5 disc who presents with a month and a half of diarrhea. The patient states the diarrhea started when she was at [facility] in rehabilitation after shattering her L femur due to a fall at home. She has since returned home. She continues to have diarrhea every time she eats and has not been able to drink well. She was seen in the ER recently and started on Cipro and Flagyl. She mentioned that she has 2 days of antibiotics left but has seen no improvement in her symptoms. She has had chills but no fever. Her stool appeared darker and she was afraid she may be bleeding. She has never had a screening colonoscopy. She has had occasional nausea. Her lost 15 pounds over the past several months but she was not eating well either. She has type II DM and has taken metformin since 1995 without difficulty. She has had several stool studies including culture and C. diff that were negative. In the ER, the patient was noted to be dehydrated with elevation of her creatinine to 1.7. US of the gallbladder was unremarkable. CT of the abdomen showed sigmoid wall thickening and stranding in the left lower quadrant and posterior to the sigmoid colon felt to possible represent colitis. Also noted was suggestion of thickening in the rectal region and the radiologist commented that "colonoscopy may be warranted to exclude an underlying lesion". The patient was recommended for admission for hydration and surgical consultation. 09/22: Today she is afebrile and hemodynamically stable. Currently she is getting colonoscopy. Her TSH level is high 7.27 and she is on Synthroid 0.025mg. Her creatinine has come down from 1.7 to 1.4 after hydration. I will consider holding her Lisinopril for now until her kidney function improves to her baseline. Her GFR is 39ml/min Patient Complains of: Neurological: No: Confusion, Weakness, Dizziness Cardiovascular: No: Chest Pain, Palpitations Respiratory: No: Cough, Congestion, Shortness of Breath Gastrointestinal: Flatus, Bowel Movement, No Nausea, No Vomiting Genitourinary: No Dysuria, No Hematuria Musculoskeletal: No: Pain, Sprain, Strain Physical Exam Vital Signs Date Time Temp Pulse Resp B/P (MAP) Pulse Ox O2 Delivery O2 Flow Rate FiO2 09/22/17 08:01 98.2 63 16 134/53 (80) 100 Nasal Cannula 0.5 Intake and Output 09/23/17 07:00 Intake Total 0 ml Balance 0 ml Intake Oral 0 ml General Appearance: Alert, Awake, No Acute Distress, Afebrile Neuro: No Gross deficits Eyes: PERRLA ENT: Normal Cardiovascular: Normal Rhythm & Peripheral Pulses, No Edema, No JVD Respiratory: No Respiratory Distress GI: Soft and Non-Tender, Other (mild RUQ tenderness on palpation) : Normal Musculoskeletal: No Weakness/Pain Extremities: Soft and Non Tender Psych: Alert & Oriented X3, Appropriate Mood & Affect Result Diagram: 09/22/17 0509/22/17511 Assessment and Plan Problems: (1) Acute colitis Status: Acute Assessment & Plan: CT shows possible colitis and/or underlying mass. Stool cultures negative x2 (another pending) and Clostridium difficile negative x3. She had been on Cipro and Flagyl as an outpatient for 5 days with no improvement - now stopped. Dr. Verdugo has seen her and plan is for endoscopy tomorrow AM. 09/22: Colonoscopy was performed by Dr. Verdugo and negative, biopsies were done. Patient tolerated the procedure well.I would use Lomotil for her diarrhea as needed (2) Dehydration Status: Acute Assessment & Plan: Due to diarrhea. On IV fluids. Monitor labs. 09/22: Her kidney function has been improving with hydration. I will hold her ACEI for now and use CCB for her BP. I will continue IVF today (3) Renal failure Status: Acute Assessment & Plan: Due to dehydration. Creatinine is unchanged at 1.7 today. Watch labs. See above. 09/22: I will hold het Lisinopril for now and repeat her BMP in am. (4) Type II diabetes mellitus Status: Chronic Assessment & Plan: Will continue Lantus at 25u per HS (1/2 dose tonight). Will SSI as needed. Hold metformin for now. (5) Hypothyroidism Status: Chronic Assessment & Plan: Continue levothyroxine. TSH pending. (6) Obesity (BMI 30-39.9) Status: Chronic Assessment & Plan: Advised to lose weight and keep diabetic 1800Cal diet for now. Time Spent on Plan of Care: < 30 min Copies to: SY FARAH DO Exam Sepsis Risk: No Definite Risk Problem Qualifiers (1) Renal failure: Renal failure chronicity: acute Acute renal failure type: unspecified Qualified Codes: N17.9 - Acute kidney failure, unspecified STEVEN CHEN MD Sep 22, 2017 09:56
[2017-09-22] MEDS: PANTOPRAZOLE SOD 40 MG IV VIAL IVP SCH (11:19)
--- NOTE | 2017-09-22 11:36 | NACHTIGAL COLONOSCOPY ---
EVENT DATE: September 22, 2017 SURGEON: Zeke Verdugo MD ANESTHESIOLOGIST: Dashawn Sprague M.D. ANESTHESIA: IV Sedation STREET ROLLER ENGINEER: Staff PREOPERATIVE DIAGNOSIS 1. Diarrhea. 2. Abnormal CT scan of the rectum. POSTOPERATIVE DIAGNOSIS Normal appearing colonoscopic examination. PROCEDURE PERFORMED Colonoscopy. DESCRIPTION OF PROCEDURE The patient was placed in the left lateral decubitus position and given intravenous sedation. The rectal examination was unremarkable The flexible colonoscope was inserted and advanced to the cecum. The appendiceal orifice, base of the cecum and ileocecal valve were identified. She had quite a good bowel prep. She had some liquid stool but we were able to easily suction this. No abnormalities were noted in the cecum. We slowly withdrew. Care was taken to look behind the haustral folds. The rectum appeared to be normal. We did take random biopsies because of the diarrhea. The transverse colon was normal. The descending and sigmoid colon were normal. We took random biopsies in the left colon. The rectum was normal. The scope was retroflexed in the rectum and that appeared to be normal. We took random biopsies in the rectum. I could not identify any mucosal breakdown in the rectum. The patient tolerated the procedure well. No apparent complications. TETE
[2017-09-22] MEDS: SUCRALFATE 1 GM TAB PO SCH ×4 (13:58→21:19)
[2017-09-22] MEDS: INSULIN GLARGINE 100 U/ML 3 ML PEN SUBQ SCH (21:19)
[2017-09-22] MEDS: SIMVASTATIN 20 MG TAB PO SCH (21:20)
[2017-09-23 05:23] VITALS: BP 138/72
[2017-09-23] MEDS ORDERED: LEVOTHYROXINE SOD 0.05 MG TAB PO SCH (06:00)
[2017-09-23] MEDS: KCL/NS* 20 MEQ/1000 ML PREMIX 1,000 ML IV SCH (06:20)
[2017-09-23 07:28] VITALS: BP 134/72
[2017-09-23] MEDS ORDERED: DIPHENOX/ATROPINE 2.5-0.025MG PO PRN (08:30)
[2017-09-23] MEDS ORDERED: AMLO2.5T74 PO (08:38)
[2017-09-23] MEDS ORDERED: DIPH-543 PO (08:38)
[2017-09-23] MEDS ORDERED: LEVO50TA86 PO (08:38)
[2017-09-23] MEDS ORDERED: LEVO-85 PO (08:38)
[2017-09-23] MEDS ORDERED: INFLUENZA VIRUS VAC 0.5 ML SYR IM ONLY ONE (09:00)
[2017-09-23] MEDS ORDERED: amLODIPine BESYL(*) 2.5 MG TAB PO SCH (09:00)
[2017-09-23] MEDS ORDERED: LEVOFLOXACIN 500 MG TAB PO SCH (09:00)
[2017-09-23 09:16] VITALS: BP 142/72
[2017-09-23] MEDS: SUCRALFATE 1 GM TAB PO SCH (09:17)
[2017-09-23] MEDS: PANTOPRAZOLE SOD 40 MG IV VIAL IVP SCH (09:18)
--- NOTE | 2017-09-23 09:19 | Hospitalist Depart ---
Discharge Summary Reason for Hosp/Final Diag: (1) Acute colitis Status: Resolved Hospital Course & Plan: Mrs. Echevarria is a 57 year old female with PMH significant for type II DM, hypothyroidism, and rectal incontinence due to previous ruptured L5 disc who presents with a month and a half of diarrhea. The patient states the diarrhea started when she was at [facility] in rehabilitation after shattering her L femur due to a fall at home. She has since returned home. She continues to have diarrhea every time she eats and has not been able to drink well. She was seen in the ER recently and started on Cipro and Flagyl. She mentioned that she has 2 days of antibiotics left but has seen no improvement in her symptoms. She has had chills but no fever. Her stool appeared darker and she was afraid she may be bleeding. She has never had a screening colonoscopy. She has had occasional nausea. Her lost 15 pounds over the past several months but she was not eating well either. She has type II DM and has taken metformin since 1995 without difficulty. She has had several stool studies including culture and C. diff that were negative. In the ER, the patient was noted to be dehydrated with elevation of her creatinine to 1.7. US of the gallbladder was unremarkable. CT of the abdomen showed sigmoid wall thickening and stranding in the left lower quadrant and posterior to the sigmoid colon felt to possible represent colitis. Also noted was suggestion of thickening in the rectal region and the radiologist commented that "colonoscopy may be warranted to exclude an underlying lesion". The patient was recommended for admission for hydration and surgical consultation. 09/22: Today she is afebrile and hemodynamically stable. Currently she is getting colonoscopy. Her TSH level is high 7.27 and she is on Synthroid 0.025mg. Her creatinine has come down from 1.7 to 1.4 after hydration. I will consider holding her Lisinopril for now until her kidney function improves to her baseline. Her GFR is 39ml/min CT shows possible colitis and/or underlying mass. Stool cultures negative x2 ( another pending) and Clostridium difficile negative x3. She had been on Cipro and Flagyl as an outpatient for 5 days with no improvement - now stopped. Dr. Verdugo has seen her and plan is for endoscopy tomorrow AM. Colonoscopy was performed by Dr. Verdugo and negative, biopsies were done. Patient tolerated the procedure well.I would use Lomotil for her diarrhea as needed 09/23: She is feeling better after starting Lomotil. Her Colonoscopy was negative and her diarrhea has stopped. She is afebrile and hemodynamically stable to be d/c' d home today and f/u with surgery in 1 week She still gets RUQ pain. I have discussed the case with Dr. Verdugo and possible Lap-Keisha as an elective procedure once she is stable and finish her antibiotic course. (2) Dehydration Status: Acute Hospital Course & Plan: Due to diarrhea. On IV fluids. Monitor labs. 09/22: Her kidney function has been improving with hydration. I will hold her ACEI for now and use CCB for her BP. I will continue IVF today 09/23: After holding her Lisinopril her kidney function improved to GFR 47ml/min. I will continue to hold her ACEI and use Norvasc 2.5mg po qd for now for her BP (3) Renal failure Status: Acute Hospital Course & Plan: Due to dehydration. Creatinine is unchanged at 1.7 today. Watch labs. See above. 09/22: I will hold het Lisinopril for now and repeat her BMP in am. 09/23: Her kidney function has been improving from Cr. 1.7 to 1.2. Her ACEI is on hold. f/u with PCP in 2 weeks and repeat BMP in 1 week (4) Type II diabetes mellitus Status: Chronic Hospital Course & Plan: Will continue Lantus at 25u per HS (1/2 dose tonight). Will SSI as needed. Hold metformin for now. 09/23: She will resume her Lantus but continue to hold Metformin for now until her kidney function resolves. (5) Hypothyroidism Status: Chronic Hospital Course & Plan: Continue levothyroxine. TSH pending. 09/23: Her TSH was high and I have increased her Synthroid dose to 50mcg a day. Repeat TSH in 1-3 months. (6) Obesity (BMI 30-39.9) Status: Chronic Hospital Course & Plan: Advised to lose weight and keep diabetic 1800Cal diet for now. (7) UTI (urinary tract infection) Status: Acute Hospital Course & Plan: Her U/A came back positive and I will start Levaquin 250mg po qd for 5 days. Departure Weight (Pounds): 240 Result Diagram: 09/22/17 0512 09/23/17 0507 Condition: Improved Discharge: Home, Home Health PT/OT Follow Up For: PT For Surgical Rehab Home Health EVENT MARKETING SPECIALIST Follow Up For: ADL Assistance Time Spent: > 30 min Discharge Instructions Home Meds Active Scripts Levothyroxine Sodium (LEVOTHYROXINE SODIUM) 50 Mcg Tablet, 0.05 MG PO QDAY@0600 for 30 Days, #30 TAB Prov:STEVEN CHEN MD 09/23/17 Levofloxacin 500 Mg Tab (LEVAQUIN 500 MG TAB) 500 Mg Tablet, 250 MG PO QDAY for 5 Days, #5 TAB Prov:STEVEN CHEN MD 09/23/17 Diphenoxylate Hcl/Atropine (DIPHENOXYLATE-ATROPINE TABLET) 1 Each Tablet, 1 EACH PO Q6H Y for DIARRHEA for 10 Days, #40 TAB Prov:STEVEN CHEN MD 09/23/17 Amlodipine Besylate (AMLODIPINE BESYLATE) 2.5 Mg Tablet, 2.5 MG PO QDAY for 30 Days, #30 TAB Prov:STEVEN CHEN MD 09/23/17 Omeprazole (OMEPRAZOLE) 40 Mg Capsule.dr, 40 MG PO QDAY, #30 CAP Prov:VALORIE RAINEY FLUID DYNAMICIST 09/10/17 Reported Medications Insulin Glargine,Hum.rec.anlog (Amauri Colon) 300 Unit/1 Ml Insuln.pen, 35 SUBQ HS 09/20/17 Simvastatin (SIMVASTATIN) 20 Mg Tablet, 10 MG PO HS, TAB 07/19/17 Discontinued Reported Medications Metformin Hcl (METFORMIN HCL) 500 Mg Tablet, 1 TAB PO BID, TAB 07/19/17 Lisinopril (LISINOPRIL) 10 Mg Tablet, 10 MG PO QDAY, TAB 07/19/17 Levothyroxine Sodium (LEVOTHYROXINE SODIUM) 50 Mcg Tablet, 25 MCG PO QDAY, TAB 07/19/17 Insulin Glargine,Hum.rec.anlog (Basaglar Kwikpen U-100) 100 Unit/Ml (3 Ml) Insuln.pen 09/10/17 Oxycodone Hcl/Acetaminophen (OXYCODONE-ACETAMINOPHEN 5-325) 1 Each Tablet, 1 EACH PO, TAB 09/10/17 Discontinued Scripts Metronidazole (FLAGYL) 500 Mg Tablet, 500 MG PO BID for infection, #14 TAB Prov:MONICA MCFARLAND 09/16/17 Ciprofloxacin Hcl (CIPRO) 500 Mg Tablet, 500 MG PO BID for infection, #14 Prov:MONICA MCFARLAND 09/16/17 Sucralfate (CARAFATE) 1 Gm Tablet, 1 GM PO QID, #60 TAB Take before meals and at bedtime. Crush the tablet and mix with water before taking. Prov:VALORIE RAINEY FLUID DYNAMICIST 09/10/17 Ondansetron Hcl (ZOFRAN) 4 Mg Tablet, 4 MG PO Q6H Y for NAUSEA/VOMITING, #12 Prov:MONICA MCFARLAND 09/16/17 Diet: Diabetic Copies to: SY FARAH DO; SAMUEL VERDUGO MD; REED SCHMITZ MD Venous Thromboembolism Antithrombotics Is Pt On Any Antithrombotics?: No Problem Qualifiers (1) Renal failure: Renal failure chronicity: acute Acute renal failure type: unspecified Qualified Codes: N17.9 - Acute kidney failure, unspecified STEVEN CHEN MD Sep 23, 2017 09:19
[2017-09-23 10:50] VITALS: BP 132/80
== END 2017-09-23 11:15 | disposition home health service (06) | DRG 392 ==
LOC: ER 14:41 → MED 17:50
PROVIDERS: ADMIT Internal Medicine; ATTEND Internal Medicine
PROC: 0DBP8ZX Excision of Rectum, Via Natural or Artificial Opening Endoscopic, Diagnostic (ICD-10-PCS; 2017-09-22)
PROC: 0DBF8ZX Excision of Right Large Intestine, Via Natural or Artificial Opening Endoscopic, Diagnostic (ICD-10-PCS; principal; 2017-09-22 09:15)
DX: K52.9 Noninfective gastroenteritis and colitis, unspecified (principal); N17.9 Acute kidney failure, unspecified; N39.0 Urinary tract infection, site not specified; Z68.41 Body mass index [BMI] 40.0-44.9, adult; K21.9 Gastro-esophageal reflux disease without esophagitis; E11.9 Type 2 diabetes mellitus without complications; E03.9 Hypothyroidism, unspecified; E86.0 Dehydration; E66.9 Obesity, unspecified; R63.4 Abnormal weight loss; Z79.4 Long term (current) use of insulin; Z79.84 Long term (current) use of oral hypoglycemic drugs; Z88.0 Allergy status to penicillin; M51.26 Other intervertebral disc displacement, lumbar region; R15.9 Full incontinence of feces
CPT/HCPCS: 36415; 36416; 74176; 76705; 81001; 82040; 82247; 82310; 82374; 82435; 82565; 82570; 82947; 82948; 83605; 83630; 83690; 83735; 84075; 84132; 84155; 84295; 84300; 84443; 84450; 84460; 84520; 85025; 85610; 85730; 87045; 87177; 87205; 87324; 87449; 88305; A4353; C9113; J1815; J2001; J2270; J2405; J2704; J3480; J7030; J8597

== ENCOUNTER 2017-10-26 13:52 | Inpatient (IN) | payer MEDICARE, MEDICAID ==
[~2017-10-26] VITALS: Ht 160 cm; Wt 108.9 kg
[~2017-10-26 13:52] MED LIST changes: -MULT-36; -PROBIOTIC; -VANC125C10 PO
--- NOTE | 2017-10-26 13:56 | ER Report ---
History and Physical Time Seen By MD: 13:56 Hx. of Stated Complaint: Crampy abdominal pain diarrhea HPI/ROS Patient is a 57-year-old morbidly obese female has a history of a femur fracture for 718 was taken to a long-term care center was released Bear was on oral antibiotics at the care center and started having diarrhea describes it is profuse watery diarrhea in the last week it's been every 20 minutes him did have a colonoscopy done 3 weeks ago G and 10 that was read as normal states in the last 4 days has been able to eat and having diarrhea episodes every 20 minutes Remainder of the 14 system rev: Yes Allergies: Coded Allergies: Penicillins (Verified Allergy, Intermediate, HIVES, 09/20/17) Home Meds Active Scripts Levothyroxine Sodium (LEVOTHYROXINE SODIUM) 50 Mcg Tablet, 0.05 MG PO QDAY@0600 for 30 Days, #30 TAB Prov:STEVEN CHEN MD 09/23/17 Diphenoxylate Hcl/Atropine (DIPHENOXYLATE-ATROPINE TABLET) 1 Each Tablet, 1 EACH PO Q6H Y for DIARRHEA for 10 Days, #40 TAB Prov:STEVEN CHEN MD 09/23/17 Amlodipine Besylate (AMLODIPINE BESYLATE) 2.5 Mg Tablet, 2.5 MG PO QDAY for 30 Days, #30 TAB Prov:STEVEN CHEN MD 09/23/17 Reported Medications [Naturemade Probiotic] No Conflict Check, 2 TAB QDAY 10/26/17 Multivit/Iron/FA/K/Herb No.244 (Alive Women's Energy Mv Tablet) 1 Each Tablet 10/26/17 Insulin Glargine,Hum.rec.anlog (Toujeo Solostar) 300 Unit/1 Ml Insuln.pen, 36 SUBQ HS 09/20/17 Simvastatin (SIMVASTATIN) 20 Mg Tablet, 10 MG PO HS, TAB 07/19/17 Discontinued Scripts Levofloxacin 500 Mg Tab (LEVAQUIN 500 MG TAB) 500 Mg Tablet, 250 MG PO QDAY for 5 Days, #5 TAB Prov:STEVEN CHEN MD 09/23/17 Omeprazole (OMEPRAZOLE) 40 Mg Capsule.dr, 40 MG PO QDAY, #30 CAP Prov:VALORIE RAINEY COMMUNICATIONS SPECIALIST 09/10/17 Past Medical/Surgical History Hypothyroidism, cataracts, deep vein thrombosis, tubal ligation, bulging disc surgery, L5 hip replacement July 2017 left left femur type II diabetes Reviewed Nurses Notes: Yes Old Medical Records Reviewed: Yes Hx Smoking: No Exposure to Second Hand Smoke?: No Hx Substance Use Disorder: No Hx Alcohol Use: Yes Family History of: Other Constitutional Vital Sign - Last 24 Hours 10/26/17 10/26/17 10/26/17 10/26/17 13:54 16:49 17:00 17:30 Temp 98.5 Pulse 72 ? Resp 16 B/P (MAP) 146/80 136/67 (90) 144/72 (96) 134/77 (96) Pulse Ox 95 O2 Delivery Room Air Intake and Output 10/26/17 10/26/17 10/27/17 15:00 23:00 07:00 Intake Total 1000 ml Output Total 100 ml Balance 900 ml Physical Exam 57 year old female alert anxious pale, marah tm non rddened throat non reddened, hrr lungs decreased bases. and obese pain lower abdomen , ruiz full pulses Medical Decision Making Data Points Result Diagram: 10/26/17 1456 10/26/17 1456 Laboratory Hematology Test 10/26/17 14:56 10/26/17 15:09 10/26/17 15:27 Red Blood Count 4.77 M/uL (4.17-5.56) Mean Corpuscular Volume 76.7 fL (80.0-96.0) Mean Corpuscular Hemoglobin 26.6 pg (26.0-33.0) Mean Corpuscular Hemoglobin Concent 34.7 g/dL (32.0-36.0) Red Cell Distribution Width 15.2 % (11.5-14.5) Mean Platelet Volume 7.8 fL (7.2-11.1) Neutrophils (%) (Auto) 76.5 % (39.4-72.5) Lymphocytes (%) (Auto) 13.2 % (17.6-49.6) Monocytes (%) (Auto) 6.8 % (4.1-12.4) Eosinophils (%) (Auto) 2.3 % (0.4-6.7) Basophils (%) (Auto) 1.2 % (0.3-1.4) Nucleated RBC Relative Count (auto) 0.0 /100WBC Neutrophils # (Auto) 7.6 K/uL (2.0-7.4) Lymphocytes # (Auto) 1.3 K/uL (1.3-3.6) Monocytes # (Auto) 0.7 K/uL (0.3-1.0) Eosinophils # (Auto) 0.2 K/uL (0.0-0.5) Basophils # (Auto) 0.1 K/uL (0.0-0.1) Nucleated RBC Absolute Count (auto) 0.00 K/uL Stool Leukocytes, Qualitative Positive Sodium Level 140 mmol/L (137-145) Potassium Level 3.7 mmol/L (3.5-5.0) Chloride Level 104 mmol/L (98-107) Carbon Dioxide Level 25 mmol/L (22-31) Blood Urea Nitrogen 18 mg/dl (7-18) Creatinine 1.10 mg/dl (0.52-1.04) Glomerular Filtration Rate Calc 51.6 Random Glucose 109 mg/dl (75-110) Lactate 1.1 mmol/L (0.7-2.1) Calcium Level 8.7 mg/dl (8.4-10.2) Total Bilirubin 0.9 mg/dl (0.2-1.3) Aspartate Amino Transf (AST/SGOT) 15 U/L (0-35) Alanine Aminotransferase (ALT/SGPT) 16 U/L (0-56) Alkaline Phosphatase 111 U/L (0-126) Troponin I < 0.012 ng/ml Total Protein 5.4 g/dl (6.3-8.2) Albumin 3.0 g/dl (3.5-5.0) Amylase Level < 30 U/L (0-110) Lipase < 10 U/L (23-300) Thyroid Stim Hormone, Ultra Sensitv 5.110 uIU/ml (0.465-4.680) Human Chorionic Gonadotropin, Qual Negative (NEGATIVE) Clostridium Difficile Toxin A & B Positive Clostridium difficile Antigen Positive Helicobacter pylori IgG Antibody Negative (NEGATIVE) Stool Occult Blood (IFOB) Negative (NEGATIVE) Urine Color Adrianna Urine Clarity Cloudy Urine pH 5.0 pH (4.8-9.5) Urine Specific [place] 1.020 Urine Protein 500 mg/dL (NEGATIVE) Urine Glucose (UA) Negative mg/dL (NEGATIVE) Urine Ketones Trace mg/dL (NEGATIVE) Urine Blood Small (NEGATIVE) Urine Nitrite Negative (NEGATIVE) Urine Bilirubin Negative (NEGATIVE) Urine Urobilinogen 4.0 mg/dL (0.2-1.9) Urine Leukocyte Esterase Moderate (NEGATIVE) Urine RBC None /HPF (0-2/HPF) Urine WBC 60 /HPF (0-5/HPF) Urine WBC Clumps Few /HPF Urine Squamous Epithelial Cells Many /LPF (NONE-FEW) Urine Bacteria Many /HPF (NONE-FEW) Urine Hyaline Casts Many /LPF (NONE-FEW) Urine Mucus Few /HPF (NONE-FEW) Chemistry Test 10/26/17 14:56 10/26/17 15:09 10/26/17 15:27 White Blood Count 10.0 k/uL (4.5-11.0) Red Blood Count 4.77 M/uL (4.17-5.56) Hemoglobin 12.7 g/dL (12.0-16.0) Hematocrit 36.6 % (34.0-47.0) Mean Corpuscular Volume 76.7 fL (80.0-96.0) Mean Corpuscular Hemoglobin 26.6 pg (26.0-33.0) Mean Corpuscular Hemoglobin Concent 34.7 g/dL (32.0-36.0) Red Cell Distribution Width 15.2 % (11.5-14.5) Platelet Count 267 K/uL (150-450) Mean Platelet Volume 7.8 fL (7.2-11.1) Neutrophils (%) (Auto) 76.5 % (39.4-72.5) Lymphocytes (%) (Auto) 13.2 % (17.6-49.6) Monocytes (%) (Auto) 6.8 % (4.1-12.4) Eosinophils (%) (Auto) 2.3 % (0.4-6.7) Basophils (%) (Auto) 1.2 % (0.3-1.4) Nucleated RBC Relative Count (auto) 0.0 /100WBC Neutrophils # (Auto) 7.6 K/uL (2.0-7.4) Lymphocytes # (Auto) 1.3 K/uL (1.3-3.6) Monocytes # (Auto) 0.7 K/uL (0.3-1.0) Eosinophils # (Auto) 0.2 K/uL (0.0-0.5) Basophils # (Auto) 0.1 K/uL (0.0-0.1) Nucleated RBC Absolute Count (auto) 0.00 K/uL Stool Leukocytes, Qualitative Positive Glomerular Filtration Rate Calc 51.6 Lactate 1.1 mmol/L (0.7-2.1) Calcium Level 8.7 mg/dl (8.4-10.2) Total Bilirubin 0.9 mg/dl (0.2-1.3) Aspartate Amino Transf (AST/SGOT) 15 U/L (0-35) Alanine Aminotransferase (ALT/SGPT) 16 U/L (0-56) Alkaline Phosphatase 111 U/L (0-126) Troponin I < 0.012 ng/ml Total Protein 5.4 g/dl (6.3-8.2) Albumin 3.0 g/dl (3.5-5.0) Amylase Level < 30 U/L (0-110) Lipase < 10 U/L (23-300) Thyroid Stim Hormone, Ultra Sensitv 5.110 uIU/ml (0.465-4.680) Human Chorionic Gonadotropin, Qual Negative (NEGATIVE) Clostridium Difficile Toxin A & B Positive Clostridium difficile Antigen Positive Helicobacter pylori IgG Antibody Negative (NEGATIVE) Stool Occult Blood (IFOB) Negative (NEGATIVE) Urine Color Adrianna Urine Clarity Cloudy Urine pH 5.0 pH (4.8-9.5) Urine Specific [place] 1.020 Urine Protein 500 mg/dL (NEGATIVE) Urine Glucose (UA) Negative mg/dL (NEGATIVE) Urine Ketones Trace mg/dL (NEGATIVE) Urine Blood Small (NEGATIVE) Urine Nitrite Negative (NEGATIVE) Urine Bilirubin Negative (NEGATIVE) Urine Urobilinogen 4.0 mg/dL (0.2-1.9) Urine Leukocyte Esterase Moderate (NEGATIVE) Urine RBC None /HPF (0-2/HPF) Urine WBC 60 /HPF (0-5/HPF) Urine WBC Clumps Few /HPF Urine Squamous Epithelial Cells Many /LPF (NONE-FEW) Urine Bacteria Many /HPF (NONE-FEW) Urine Hyaline Casts Many /LPF (NONE-FEW) Urine Mucus Few /HPF (NONE-FEW) Urinalysis Test 10/26/17 15:27 Urine Color Adrianna Urine Clarity Cloudy Urine pH 5.0 pH (4.8-9.5) Urine Specific [place] 1.020 Urine Protein 500 mg/dL (NEGATIVE) Urine Glucose (UA) Negative mg/dL (NEGATIVE) Urine Ketones Trace mg/dL (NEGATIVE) Urine Blood Small (NEGATIVE) Urine Nitrite Negative (NEGATIVE) Urine Bilirubin Negative (NEGATIVE) Urine Urobilinogen 4.0 mg/dL (0.2-1.9) Urine Leukocyte Esterase Moderate (NEGATIVE) Urine RBC None /HPF (0-2/HPF) Urine WBC 60 /HPF (0-5/HPF) Urine WBC Clumps Few /HPF Urine Squamous Epithelial Cells Many /LPF (NONE-FEW) Urine Bacteria Many /HPF (NONE-FEW) Urine Hyaline Casts Many /LPF (NONE-FEW) Urine Mucus Few /HPF (NONE-FEW) EKG/Imaging EKG Interpretation EKG at 1408 normal sinus rhythm ventricular rate is 73 QTC is 484 Monitor Interpretation: Normal Sinus Rhythm Imaging FACILITY: [facility] [place] PATIENT NAME: Mera Echevarria : 1960 MR: [id number] V: [id number] EXAM DATE: ORDERING PHYSICIAN: MARLEY BOJORQUEZ TECHNOLOGIST: Location: [facility] Patient: Mera Echevarria : 1960 Visit/Account:[id number] Date of Sevice: 10/26/2017 EXAMINATION: CT abdomen and pelvis with contrast COMPARISON: 09/20/2017 and earlier. HISTORY: Abdominal pain and diarrhea. PROCEDURE: Multiplanar contrast enhanced CT of the abdomen and pelvis with 75 mL intravenous Isovue 370. One of the following dose optimization techniques was utilized in the performance of this exam: Automated exposure control; adjustment of the mA and/or kV according to the patient's size; or use of an iterative reconstruction technique. Specific details can be referenced in the facility's radiology CT exam operational policy. FINDINGS: Visualized thorax: Unchanged mitral valve annulus calcification. Lung bases are clear. Liver: Negative. Gallbladder and biliary system: Negative Spleen: 16.4 cm enlarged spleen is unchanged in size although there is now a 5.6 x 1.9 x 3.6 cm region of peripheral decreased attenuation in the upper pole. Pancreas: Negative. Adrenal glands: Negative. 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 No renal mass or hydronephrosis. Urinary bladder is completely decompressed by Lafleur catheter. Questionable bladder wall thickening. Vessels: Aortoiliac mild atherosclerosis. No abdominal aortic aneurysm. Portal venous system, splenic vein, and IVC are unremarkable. Bowel and mesentery: Stomach, small bowel, and appendix are within normal limits with no evidence of inflammation. Moderate amount of stool predominantly in the ascending and transverse colon. Significant wall thickening and inflammation extending from the distal transverse colon to the rectum has markedly progressed since 09/20/2017. No pneumatosis or extraluminal gas or fluid collection is identified. The mesenteric vessels perfusing this section of colon are favored to be patent. Pelvic organs: Gas in the endometrial canal. The fat planes between the uterus, bladder, and rectosigmoid colon appear fairly well-preserved. No adnexal mass. Lymph nodes: Numerous prominent retroperitoneal and mesenteric lymph nodes are little changed and favored to be reactive. Free air/free fluid: None. Abdominal wall and osseous structures: Moderately advanced degenerative disc disease at L5-S1 with prior L5 posterior decompression. No acute findings. IMPRESSION: 1. Left hemicolon marked inflammation has progressed since 09/20/2017 and is compatible with the history of C. difficile colitis. No evidence of obstruction or perforation. 2. Unchanged splenomegaly. A new 5.6 cm region of decreased attenuation within the peripheral spleen is most suggestive of a splenic infarct. 3. Indeterminate gas in the endometrial canal. Correlation with any history of recent instrumentation or infection is recommended. There are no definite CT findings of fistula. 4. Urinary bladder wall thickening. This could be accentuated by underdistention although correlation with any evidence of a cystitis is recommended. 5. Additional nonacute findings as described above. Results were discussed with MARLEY BOJORQUEZ at 10/26/2017 4:43 PM. Report Dictated By: Parviz Chaney MD at 10/26/2017 4:30 PM Report E-Signed By: Parviz Chaney MD at 10/26/2017 4:45 PM WSN:[id number] ED Course/Re-evaluation Clinical Indication for ER IV: Hydration ED Course Given 2 L of saline in the emergency room did start Flagyl and Levaquin as no IV Cipro was available facility for her C. difficile did discuss the patient with hospitalist he agrees to admit her criteria being unable to hold food down for the last 4 days dehydration with a creatinine 1.1 C. difficile diagnosis Re-evaluation Discussed this patient with hospitalist we will admit her for C. difficile inability to eat or drink for 4 days E hydration Decision to Disposition Date: Oct 26, 2017 Decision to Disposition Time: 18:41 Depart Departure Latest Vital Signs Vital Signs Date Time Temp Pulse Resp B/P (MAP) Pulse Ox O2 Delivery O2 Flow Rate FiO2 10/26/17 17:30 ??? 134/77 (96) 10/26/17 13:54 98.5 16 95 Room Air Impression: Primary Impression: C. difficile diarrhea Additional Impression: Dehydration Condition: Improved Disposition: Admitted from ER Referrals: SY FARAH DO (PCP) Problem Qualifiers MARLEY BOJORQUEZ Oct 26, 2017 13:56
[2017-10-26] MEDS ORDERED: NS(*) 0.9% 1000 ML BAG 1,000 ML IV ONE (13:58)
[2017-10-26] MEDS ORDERED: ONDANSETRON 4 MG/2 ML VIAL IVP ONE (14:00)
[2017-10-26] MEDS ORDERED: MULT-36 (14:04)
[2017-10-26] MEDS ORDERED: PROBIOTIC (14:04)
--- NOTE | 2017-10-26 14:13 | EKG ---
[place] [facility] [place] NAME: DEBI DEVLIN : [id number] MR: [id number] V: [id number] EXAM DATE: ORDERING PHYSICIAN: MARLEY BOJORQUEZ TECHNOLOGIST: FAY Howell Reason : abd. pain Blood Pressure : / mmHG Vent. Rate : 073 BPM Atrial Rate : 073 BPM P-R Int : 140 ms QRS Dur : 084 ms QT Int : 440 ms P-R-T Axes : 055 006 065 degrees QTc Int : 484 ms Normal sinus rhythm Nonspecific T wave abnormality Prolonged QT Abnormal ECG When compared with ECG of 19-JUL-2017 00:27, T wave inversion now evident in Anterior leads Referred By: ER Confirmed By:
[2017-10-26 15:09] LABS: PLATELET COUNT, AUTOMATED 267 K/uL (150-450)
[2017-10-26] MEDS ORDERED: IOPAMIDOL 76% 75 ML INFUS BTL 75 ML ONE (15:42)
--- NOTE | 2017-10-26 16:49 | RADIOLOGY IMAGING REPORT ---
FACILITY: [facility] PATIENT NAME: Mera Echevarria : 1960 MR: [id number] V: [id number] EXAM DATE: ORDERING PHYSICIAN: MARLEY BOJORQUEZ TECHNOLOGIST: [place] [facility] [place]era Echevarria : 1960 Visit/Account:[id number] Date of Sevice: 10/26/2017 EXAMINATION: CT abdomen and pelvis with contrast COMPARISON: 09/20/2017 and earlier. HISTORY: Abdominal pain and diarrhea. PROCEDURE: Multiplanar contrast enhanced CT of the abdomen and pelvis with 75 mL intravenous Isovue 3 70. One of the following dose optimization techniques was utilized in the performance of this exam: A utomated exposure control; adjustment of the mA and/or kV according to the patient's size; or use of an iterative reconstruction technique. Specific details can be referenced in the facility's radiolo gy CT exam operational policy. FINDINGS: Visualized thorax: Unchanged mitral valve annulus calcification. Lung bases are clear. Liver: Negative. Gallbladder and biliary system: Negative Spleen: 16.4 cm enlarged spleen is unchanged in size although there is now a 5.6 x 1.9 x 3.6 cm regio n of peripheral decreased attenuation in the upper pole. Pancreas: Negative. Adrenal glands: Negative. Kidneys and bladder: Renal parenchyma enhances homogeneously and there are likely a few small old cor tical infarcts. No renal mass or hydronephrosis. Urinary bladder is completely decompressed by Lafleur catheter. Questionable bladder wall thickening. Vessels: Aortoiliac mild atherosclerosis. No abdominal aortic aneurysm. Portal venous system, splenic vein, and IVC are unremarkable. Bowel and mesentery: Stomach, small bowel, and appendix are within normal limits with no evidence of inflammation. Moderate amount of stool predominantly in the ascending and transverse colon. Significa nt wall thickening and inflammation extending from the distal transverse colon to the rectum has harshil edly progressed since 09/20/2017. No pneumatosis or extraluminal gas or fluid collection is identified . The mesenteric vessels perfusing this section of colon are favored to be patent. Pelvic organs: Gas in the endometrial canal. The fat planes between the uterus, bladder, and rectosig moid colon appear fairly well-preserved. No adnexal mass. Lymph nodes: Numerous prominent retroperitoneal and mesenteric lymph nodes are little changed and fav ored to be reactive. Free air/free fluid: None. Abdominal wall and osseous structures: Moderately advanced degenerative disc disease at L5-S1 with pr ior L5 posterior decompression. No acute findings. IMPRESSION: 1. Left hemicolon marked inflammation has progressed since 09/20/2017 and is compatible with the histo ry of C. difficile colitis. No evidence of obstruction or perforation. 2. Unchanged splenomegaly. A new 5.6 cm region of decreased attenuation within the peripheral spleen is most suggestive of a splenic infarct. 3. Indeterminate gas in the endometrial canal. Correlation with any history of recent instrumentation or infection is recommended. There are no definite CT findings of fistula. 4. Urinary bladder wall thickening. This could be accentuated by underdistention although correlation with any evidence of a cystitis is recommended. 5. Additional nonacute findings as described above. Results were discussed with MARLEY BOJORQUEZ at 10/26/2017 4:43 PM. Report Dictated By: Parviz Chaney MD at 10/26/2017 4:30 PM Report E-Signed By: Parviz Chaney MD at 10/26/2017 4:45 PM WSN:[id number]
[2017-10-26] MEDS ORDERED: LEVOFLOXACIN/D5W 750 MG/150 ML 150 ML IVPB ONE (17:50)
[2017-10-26] MEDS ORDERED: metroNIDAZOLE* 500MG/100ML BAG 100 ML IVPB ONE (17:50)
[2017-10-26] MEDS ORDERED: NS(*) 0.9% 1000 ML BAG 1,000 ML IV PRN ×2 (18:15→20:26)
[2017-10-26 19:22] VITALS: BP 136/67
[2017-10-26] MEDS ORDERED: VANCOMYCIN HCL 125 MG CAPSULE PO SCH (20:10)
[2017-10-26] MEDS ORDERED: INFLUENZA VIRUS VAC 0.5 ML SYR IM ONLY ONE (20:30)
[2017-10-26] MEDS: SIMVASTATIN 20 MG TAB PO SCH (21:13)
[2017-10-26] MEDS: VANCOMYCIN HCL 125 MG CAPSULE PO SCH (21:14)
--- NOTE | 2017-10-26 21:27 | History & Physical ---
History of Present Illness Chief Complaint The patient is a 57 year old female with PMH significant for type II DM, rectal incontinence due to previous ruptured L5 disc and recent hospitalization for colitis who presents with intractable diarrhea beginning one week ago. History of Present Illness The patient states she shattered her left femur in July of this year when she fell at home. She went to [facility] for rehabilitation and while she was there she developed diarrhea. She was discharged to home and the diarrhea continued. She presented to [facility] ER on September 20 and was admitted with colitis. She had several stool studies at that time as well as C. difficile studies, all of which were negative. She underwent colonoscopy while hospitalized (09/22/17) and no abnormalities were found. Biopsies were negative. She was discharged on September 23 and finished a course of antibiotics at home. Her symptoms resolved and she felt well. She states that she was able to travel to the [email or web address] to [employer] [place] [email or web address] A week ago she developed the sudden onset of abdominal cramping and severe diarrhea. She denies nausea or vomiting. She states her highest measured temp was 99.3. She did not have chills. She took an antidiarrheal at home but it did not help at all. She has been unable to eat or drink much as everything she consumes goes right through her. She has type II DM and stopped her Lantus in the evening due to low blood sugars due to poor oral intake. History Problems: (1) Obesity (BMI 30-39.9) Status: Chronic (2) Type II diabetes mellitus Status: Chronic (3) Hypothyroidism Status: Chronic (4) Endometriosis Status: Chronic (5) Lumbar disc disease Status: Chronic (6) Supracondylar fracture of distal end of femur with intracondylar extension Status: Chronic (7) History of tubal ligation Status: Resolved (8) History of cataract extraction Status: Resolved (9) Hx of section Status: Resolved (10) History of lumbar surgery Status: Resolved (11) History of bladder suspension procedure Status: Resolved Home Meds Active Scripts Levothyroxine Sodium (LEVOTHYROXINE SODIUM) 50 Mcg Tablet, 0.05 MG PO QDAY@0600 for 30 Days, #30 TAB Prov:STEVEN CHEN MD 09/23/17 Diphenoxylate Hcl/Atropine (DIPHENOXYLATE-ATROPINE TABLET) 1 Each Tablet, 1 EACH PO Q6H Y for DIARRHEA for 10 Days, #40 TAB Prov:STEVEN CHEN MD 09/23/17 Amlodipine Besylate (AMLODIPINE BESYLATE) 2.5 Mg Tablet, 2.5 MG PO QDAY for 30 Days, #30 TAB Prov:STEVEN CHEN MD 09/23/17 Reported Medications [Naturemade Probiotic] No Conflict Check, 2 TAB QDAY 10/26/17 Multivit/Iron/FA/K/Herb No.244 (Alive Women's Energy Mv Tablet) 1 Each Tablet 10/26/17 Insulin Glargine,Hum.rec.anlog ([place] Solostar) 300 Unit/1 Ml Insuln.pen, 36 SUBQ HS 09/20/17 Simvastatin (SIMVASTATIN) 20 Mg Tablet, 10 MG PO HS, TAB 07/19/17 Discontinued Scripts Levofloxacin 500 Mg Tab (LEVAQUIN 500 MG TAB) 500 Mg Tablet, 250 MG PO QDAY for 5 Days, #5 TAB Prov:STEVEN CHEN MD 09/23/17 Omeprazole (OMEPRAZOLE) 40 Mg Capsule.dr, 40 MG PO QDAY, #30 CAP Prov:VALORIE RAINEY ACADEMIC AFFAIRS COORDINATOR 09/10/17 Allergies: Coded Allergies: Penicillins (Verified Allergy, Intermediate, HIVES, 09/20/17) Patient History: FH: COPD (chronic obstructive pulmonary disease) MOTHER, FH: diabetes mellitus MOTHER, BROTHER OR SISTER FHx: asthma FATHER, Other Social/Family Hx The patient is . She lives in [place] with her daughters. She is disabled. Hx Smoking: No Exposure to Second Hand Smoke?: No Caffeine Intake: Coffee Caffeine/Cups Per Day: 2 cups in AM Hx Alcohol Use: Yes Alcohol Used: Beer Hx Substance Use Disorder: No Social Drug Use: Never History of IV Drug Use: No Review of Systems Constitutional: No Fever, No Chills Neurological: Weakness Gastrointestinal: No Nausea, No Vomiting, Diarrhea Musculoskeletal: Pain Other L femur. Non-healing fracture. Exam Vital Signs Vital Signs Date Time Temp Pulse Resp B/P (MAP) Pulse Ox O2 Delivery O2 Flow Rate FiO2 10/26/17 19:22 98.2 65 14 136/67 (90) 96 Room Air General Appearance: Alert, Awake, No Acute Distress, Afebrile Neuro: No Gross deficits Eyes: PERRLA Cardiovascular: Regular Rate and Rhythm, Other (Trace edema.) Respiratory: Clear to Auscultation GI: Other (Abdomen soft, nondistended, diffusely tender to palpation without rebound, guarding or masses.) Lymph: Cervical Nodes Benign Extremities: Warm, Perfused, Other (Trace edema bilaterally. ) Integumentary: Other (R lateral ankle with bandage over "sunburn". No drainage noted. ) Psych: Alert & Oriented X3, Appropriate Mood & Affect Medical Decision Making Data Points Result Diagram: 10/26/17 1456 10/26/17 145 Item Value Date Time Calcium Level 8.7 mg/dl 10/26/17 1456 Total Bilirubin 0.9 mg/dl 10/26/17 1456 Aspartate Amino Transf (AST/SGOT) 15 U/L 10/26/17 1456 Alanine Aminotransferase (ALT/SGPT) 16 U/L 10/26/17 1456 Alkaline Phosphatase 111 U/L 10/26/17 1456 Total Protein 5.4 g/dl L 10/26/17 1456 Albumin 3.0 g/dl L 10/26/17 1456 Lactate 1.1 mmol/L 10/26/17 1456 Troponin I < 0.012 ng/ml 10/26/17 1456 Amylase Level < 30 U/L 10/26/17 1456 Lipase < 10 U/L L 10/26/17 1456 Human Chorionic Gonadotropin, Qual Negative 10/26/17 1456 Thyroid Stim Hormone, Ultra Sensitv 5.110 uIU/ml H 10/26/17 1456 Urine Color Adrianna 10/26/17 1527 Urine Clarity Cloudy 10/26/17 1527 Urine pH 5.0 pH 10/26/17 1527 Urine Specific Boles 1.020 10/26/17 1527 Urine Protein 500 mg/dL 10/26/17 1527 Urine Glucose (UA) Negative mg/dL 10/26/17 1527 Urine Ketones Trace mg/dL 10/26/17 1527 Urine Blood Small 10/26/17 1527 Urine Nitrite Negative 10/26/17 1527 Urine Bilirubin Negative 10/26/17 1527 Urine Urobilinogen 4.0 mg/dL H 10/26/17 1527 Urine Leukocyte Esterase Moderate H 10/26/17 1527 Urine RBC None /HPF 10/26/17 1527 Urine WBC 60 /HPF 10/26/17 1527 Urine WBC Clumps Few /HPF 10/26/17 1527 Urine Squamous Epithelial Cells Many /LPF H 10/26/17 1527 Urine Bacteria Many /HPF H 10/26/17 1527 Urine Hyaline Casts Many /LPF H 10/26/17 1527 Urine Mucus Few /HPF 10/26/17 1527 Stool Leukocytes, Qualitative Positive 10/26/17 1456 Stool Occult Blood (IFOB) Negative 10/26/17 1509 Clostridium Difficile Toxin A & B Positive 10/26/17 1456 Clostridium difficile Antigen Positive 10/26/17 1456 Helicobacter pylori IgG Antibody Negative 10/26/17 1456 Stool and urine cultures pending. EKG / Imaging EKG Interpretation FACILITY: [facility] PATIENT NAME: DEBI ECHEVARRIA : [id number] MR: [id number] V: [id number] EXAM DATE: [id number] ORDERING PHYSICIAN: MARLEY BOJORQUEZ TECHNOLOGIST: FAY Howell Reason : abd. pain Blood Pressure : / mmHG Vent. Rate : 073 BPM Atrial Rate : 073 BPM P-R Int : 140 ms QRS Dur : 084 ms QT Int : 440 ms P-R-T Axes : 055 006 065 degrees QTc Int : 484 ms Normal sinus rhythm Nonspecific T wave abnormality Prolonged QT Abnormal ECG When compared with ECG of 19-JUL-2017 00:27, T wave inversion now evident in Anterior leads Referred By: ER Confirmed By: [id number] T: / Imaging FACILITY: [facility] PATIENT NAME: Debi Echevarria : 1960 MR: [id number] V: [id number] EXAM DATE: [id number] ORDERING PHYSICIAN: MARLEY BOJORQUEZ TECHNOLOGIST: Location: [facility] [place], [place] Patient: Debi Echevarria : 1960 Visit/Account:[id number] Date of Sevice: 10/26/2017 EXAMINATION: CT abdomen and pelvis with contrast COMPARISON: 09/20/2017 and earlier. HISTORY: Abdominal pain and diarrhea. PROCEDURE: Multiplanar contrast enhanced CT of the abdomen and pelvis with 75 mL intravenous Isovue 370. One of the following dose optimization techniques was utilized in the performance of this exam: Automated exposure control; adjustment of the mA and/or kV according to the patient's size; or use of an iterative reconstruction technique. Specific details can be referenced in the facility's radiology CT exam operational policy. FINDINGS: Visualized thorax: Unchanged mitral valve annulus calcification. Lung bases are clear. Liver: Negative. Gallbladder and biliary system: Negative Spleen: 16.4 cm enlarged spleen is unchanged in size although there is now a 5.6 x 1.9 x 3.6 cm region of peripheral decreased attenuation in the upper pole. Pancreas: Negative. Adrenal glands: Negative. 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 No renal mass or hydronephrosis. Urinary bladder is completely decompressed by Lafleur catheter. Questionable bladder wall thickening. Vessels: Aortoiliac mild atherosclerosis. No abdominal aortic aneurysm. Portal venous system, splenic vein, and IVC are unremarkable. Bowel and mesentery: Stomach, small bowel, and appendix are within normal limits with no evidence of inflammation. Moderate amount of stool predominantly in the ascending and transverse colon. Significant wall thickening and inflammation extending from the distal transverse colon to the rectum has markedly progressed since 09/20/2017. No pneumatosis or extraluminal gas or fluid collection is identified. The mesenteric vessels perfusing this section of colon are favored to be patent. Pelvic organs: Gas in the endometrial canal. The fat planes between the uterus, bladder, and rectosigmoid colon appear fairly well-preserved. No adnexal mass. Lymph nodes: Numerous prominent retroperitoneal and mesenteric lymph nodes are little changed and favored to be reactive. Free air/free fluid: None. Abdominal wall and osseous structures: Moderately advanced degenerative disc disease at L5-S1 with prior L5 posterior decompression. No acute findings. IMPRESSION: 1. Left hemicolon marked inflammation has progressed since 09/20/2017 and is compatible with the history of C. difficile colitis. No evidence of obstruction or perforation. 2. Unchanged splenomegaly. A new 5.6 cm region of decreased attenuation within the peripheral spleen is most suggestive of a splenic infarct. 3. Indeterminate gas in the endometrial canal. Correlation with any history of recent instrumentation or infection is recommended. There are no definite CT findings of fistula. 4. Urinary bladder wall thickening. This could be accentuated by underdistention although correlation with any evidence of a cystitis is recommended. 5. Additional nonacute findings as described above. Results were discussed with MARLEY BOJORQUEZ at 10/26/2017 4:43 PM. Report Dictated By: Parviz Chaney MD at 10/26/2017 4:30 PM Report E-Signed By: Parviz Chaney MD at 10/26/2017 4:45 PM [id number] Pre-Admit Course Medical Record Review: Yes Assessment and Plan Problems: (1) C. difficile diarrhea Status: Acute Assessment & Plan: The patient has recently been on a course of antibiotics for colitis. She has not had C. difficile before. Will start with oral Vancomycin 125mg po qid. Unfortunately she received a dose of Levaquin and Flagyl today in the ER prior to return of the C. diff result which can prolong the course of diarrhea and increase the likelihood of treatment failure. Will place on IV fluids and clear liquid diet. (2) Intractable diarrhea Status: Acute Assessment & Plan: See above. (3) Dehydration Status: Acute Assessment & Plan: Due to above. Will hydrate with IV fluids. Recheck labs in am. (4) JENNIE (acute kidney injury) Status: Acute Assessment & Plan: Creatinine is slightly elevated at 1.1 due to dehydration from her intractable diarrhea. Will hydrate with IV fluids and recheck labs in am. (5) Prolonged Q-T interval on ECG Status: Acute Assessment & Plan: The patient's EKG shows a prolonged QT interval. She received Levaquin and Zofran in the ER. These medications will not be continued and she will be placed on telemetry. Avoid any further QT prolonging drugs. (6) UTI (urinary tract infection) Status: Acute Assessment & Plan: A urinalysis (cath) shows pyuria but also many squamous epithelial cells. She did receive a dose of Levaquin in the ER. Will order a urine culture and hold off on antibiotics until culture results are available. As noted above, concomitant antibiotic therapy (other than treatment for C. diff ) can complicate treatment of her C. diff. (7) Type II diabetes mellitus Status: Chronic Assessment & Plan: She has been having low blood sugars at home. Will check glucoses AC/HS and place on sliding scale insulin for now. She takes Lantus at HS at home. (8) Hypothyroidism Status: Chronic Assessment & Plan: Will continue her levothyroxine. Her TSH is elevated, but she likely has not been absorbing her medication over the past week. Recommend continuing her current dose and repeating a TSH in 4-6 weeks. (9) Supracondylar fracture of distal end of femur with intracondylar extension Status: Chronic Assessment & Plan: The patient states this fracture is not healing like it should and she is still unable to bear much weight on her left leg due to pain. She continues to follow with orthopedic surgery. (10) Obesity (BMI 30-39.9) Status: Chronic Assessment & Plan: Chronic. Time Spent on Plan of Care: < 30 min Venous Thromboembolism Antithrombotics Is Pt On Any Antithrombotics?: Yes Exam Sepsis Risk: No Definite Risk MALIKA NGO MD Oct 26, 2017 21:27
[2017-10-27 02:41] VITALS: BP 121/89
[2017-10-27] MEDS: LEVOTHYROXINE SOD 0.05 MG TAB PO SCH (06:37)
[2017-10-27 08:05] VITALS: BP 125/60
[2017-10-27] MEDS: VANCOMYCIN HCL 125 MG CAPSULE PO SCH ×4 (08:42→21:27)
[2017-10-27] MEDS: amLODIPine BESYL(*) 2.5 MG TAB PO SCH (08:42)
[2017-10-27] MEDS: ENOXAPARIN 40 MG/0.4ML SYR SC SCH (08:43)
[2017-10-27] MEDS ORDERED: LIDOCAINE/SOD BICARB 8.4% SYR ID ONE (08:45)
[2017-10-27 09:43] LABS: PLATELET COUNT, AUTOMATED 239 K/uL (150-450)
[2017-10-27 11:01] VITALS: BP 120/70
--- NOTE | 2017-10-27 13:20 | Hospitalist Progress Note ---
Subjective Progress Notes Subjective Her diarrhea is slowing down. She tolerated liquids and would like to advance her diet. Physical Exam Vital Signs Date Time Temp Pulse Resp B/P (MAP) Pulse Ox O2 Delivery O2 Flow Rate FiO2 10/27/17 11:10 84 10/27/17 11:01 98.4 64 12 120/70 (87) Nasal Cannula 1.0 Intake and Output 10/28/17 07:00 Intake Total 535 ml Balance 535 ml Intake IV Total 535 ml General Appearance: Alert, Awake, No Acute Distress GI: Soft and Non-Tender Result Diagram: 10/27/17 0936 10/27/17 09 Monitor Interpretation: Normal Sinus Rhythm Assessment and Plan Problems: (1) C. difficile diarrhea Status: Acute Assessment & Plan: She presented with one week of diarrhea. The patient has recently been on a course of antibiotics for colitis. She has not had C. difficile before. Now on oral Vancomycin 125mg po qid. Unfortunately she received a dose of Levaquin and Flagyl today in the ER prior to return of the C. diff result which can prolong the course of diarrhea and increase the likelihood of treatment failure. The diarrhea is slowing. She tolerated liquids, so will advance her diet. (2) Intractable diarrhea Status: Acute Assessment & Plan: See above. (3) Dehydration Status: Acute Assessment & Plan: Due to above. Hydrated with IV fluids. Recheck labs in am. (4) JENNIE (acute kidney injury) Status: Acute Assessment & Plan: Creatinine was slightly elevated at 1.1 due to dehydration from her intractable diarrhea. This morning it was 0.9 and her diarrhea had slowed. Will saline lock and follow BMP. (5) Prolonged Q-T interval on ECG Status: Acute Assessment & Plan: The patient's EKG shows a prolonged QT interval. She received Levaquin and Zofran in the ER. These medications will not be continued and she will be placed on telemetry. Avoid any further QT prolonging drugs. (6) UTI (urinary tract infection) Status: Acute Assessment & Plan: A urinalysis (cath) shows pyuria but also many squamous epithelial cells. She did receive a dose of Levaquin in the ER. Urine culture pending and will hold off on antibiotics until culture results are available. As noted above, concomitant antibiotic therapy (other than treatment for C. diff ) can complicate treatment of her C. diff. (7) Type II diabetes mellitus Status: Chronic Assessment & Plan: She has been having low blood sugars at home. Will check glucoses AC/HS and place on sliding scale insulin for now. She takes Lantus at HS at home. (8) Hypothyroidism Status: Chronic Assessment & Plan: Will continue her levothyroxine. Her TSH is elevated, but she likely has not been absorbing her medication over the past week. Recommend continuing her current dose and repeating a TSH in 4-6 weeks. (9) Supracondylar fracture of distal end of femur with intracondylar extension Status: Chronic Assessment & Plan: The patient states this fracture is not healing like it should and she is still unable to bear much weight on her left leg due to pain. She continues to follow with orthopedic surgery. (10) Obesity (BMI 30-39.9) Status: Chronic Assessment & Plan: Chronic. Exam Sepsis Risk: No Definite Risk JOSE M LY MD Oct 27, 2017 13:20
[2017-10-27 15:24] VITALS: BP 145/62
[2017-10-27] MEDS: INSULIN HUM LISPRO 100 UN/ML 3 ML VIAL SUBQ PRN ×2 (16:51→21:32)
[2017-10-27 17:07] VITALS: Ht 160 cm; Wt 108.9 kg
--- NOTE | 2017-10-27 17:12 | Medical Nutrition Therapy ---
Nutrition Anthropometrics Height (Inches): 63.00 Height (Calculated Centimeters: 160.370889 Weight (Pounds): 240 Weight (Calculated Kilograms): 108.862 Cordell Nutrition Score: Adequate Cordell Nutrition Risk Score: 13 Dietary Referral Nutrition Risk Factors: Unplanned Loss >10lbs Nutrition Risk Comment: Physical Findings Physical Appearance: Morbidly Obese 40+ Skin Appearance Skin Appearance: Edema Edema Location Modifier: Both Edema Location: Ankle Type of Edema: Degree of Edema: 2+ Gastrointestinal Symptoms GI Symtoms: Diarrhea Tube Present: Bowel Sounds: Recent Bowel Pattern: Diarrhea Stool Characteristics: Nutritional Diagnosis Nutritional Risk Acuity 2: V/D > 3 Days Nutritional Risk Acuity 3: Morbid Obesity Nutritional Risk Acuity 4: Good Appetite Past Medical History: T2DM, hyperglycemia, GI bleed, infectious diarrhea, hypothyroid, renal failure, acute colitis Nutritional Acuity: 2-Moderate Nutrition Diagnosis: Altered GI Function Nutrition Etiology: Physiological Causes Nutrition Problem/Etiology/Sym: r/t dx c-iff AEB reported diarrhea 1 week. Adjusted Energy Requirement Re: 2160 (20gm/kg) Protein Requirement: 86 (.8gm/kg) Fluid Requirement: 2160 (20ml/kg) Diet Type: Diabetic Nutrition Intervention: Cont diet as ordered, Encourage intake Nutrition Monitoring & Eval Nutrition Goals: Eat 75-100% Meal, Drink > 2 liters/day RD Patient Assessment Time: [address] Assessment Type: RD Assessment Patient Nutrition Acuity: 2-Moderate Follow Up Date: Nov 01, 2017 Nutritional Comment: 10/27 Pt admitted for c-diff following 1 week of diarrhea. Alb 3, BG 96- 173. pt admitted with NOEMY however curently BUN WNR at 13 and creatinine WNR at .9 Zpt on ADA diet and eating 100%. BMI is in class 3 obesity range.Will cont to monitor and encourage intake. CLARISSA LOUIE Oct 27, 2017 17:12
[2017-10-27 20:02] VITALS: BP 138/65
[2017-10-27] MEDS: SIMVASTATIN 20 MG TAB PO SCH (21:28)
[2017-10-27 23:18] VITALS: BP 104/71
[2017-10-28 05:10] VITALS: BP 128/62
[2017-10-28] MEDS: LEVOTHYROXINE SOD 0.05 MG TAB PO SCH (05:18)
[2017-10-28 07:23] VITALS: BP 129/63
[2017-10-28] MEDS ORDERED: DIPH-543 PO (08:23)
[2017-10-28] MEDS ORDERED: VANC125C10 PO (08:23)
--- NOTE | 2017-10-28 08:35 | Hospitalist Depart ---
Discharge Summary Reason for Hosp/Final Diag: (1) C. difficile diarrhea Status: Acute Hospital Course & Plan: She presented with one week of diarrhea. The patient has recently been on a course of antibiotics for colitis. She has not had C. difficile before. Now on oral Vancomycin 125mg po qid. Unfortunately she received a dose of Levaquin and Flagyl today in the ER prior to return of the C. diff result which can prolong the course of diarrhea and increase the likelihood of treatment failure. The diarrhea has slowed. She tolerated advancing her diet. She will be sent home with Imodium and Vancomycin for 9 days. She will follow up with PCP in two weeks. (2) Intractable diarrhea Status: Acute Hospital Course & Plan: See above. (3) Dehydration Status: Acute Hospital Course & Plan: Due to above. Hydrated with IV fluids. (4) JENNIE (acute kidney injury) Status: Acute Hospital Course & Plan: Creatinine was slightly elevated at 1.1 due to dehydration from her intractable diarrhea. Yesterday morning it was 0.9 and her diarrhea had slowed. (5) Prolonged Q-T interval on ECG Status: Acute Hospital Course & Plan: The patient's EKG shows a prolonged QT interval. She received Levaquin and Zofran in the ER. These medications will not be continued and she will be placed on telemetry. Avoid any further QT prolonging drugs. (6) UTI (urinary tract infection) Status: Acute Hospital Course & Plan: A urinalysis (cath) shows pyuria but also many squamous epithelial cells. She did receive a dose of Levaquin in the ER. As noted above, concomitant antibiotic therapy (other than treatment for C. diff) can complicate treatment of her C. diff. (7) Type II diabetes mellitus Status: Chronic Hospital Course & Plan: She was having low blood sugars at home, secondary to decreased diet prior to admission. She has resumed her normal diet now. She takes Lantus at HS at home. (8) Hypothyroidism Status: Chronic Hospital Course & Plan: Will continue her levothyroxine. Her TSH is elevated, but she likely has not been absorbing her medication over the past week. Recommend continuing her current dose and repeating a TSH in 4-6 weeks. (9) Supracondylar fracture of distal end of femur with intracondylar extension Status: Chronic Hospital Course & Plan: The patient states this fracture is not healing like it should and she is still unable to bear much weight on her left leg due to pain. She continues to follow with orthopedic surgery. (10) Obesity (BMI 30-39.9) Status: Chronic Hospital Course & Plan: Chronic. Departure Latest Vital Signs Vital Signs 10/28/17 10/28/17 10/28/17 07:23 07:28 07:31 Temp 98.3 Pulse 55 Resp 18 B/P (MAP) 129/63 (85) Pulse Ox 92 O2 Delivery Nasal Cannula O2 Flow Rate 0.5 Weight (Pounds): 240 Result Diagram: 10/27/1793510/27/17935 Condition: Improved Discharge: Home, Self Care PT/OT Follow Up For: PT For Strengthening Discharge Instructions Home Meds Active Scripts Vancomycin Hcl (VANCOCIN HCL) 125 Mg Cap, 125 MG PO QID, #36 CAP Prov:ANTONINA HUSAIN [employer] 10/28/17 Diphenoxylate Hcl/Atropine (DIPHENOXYLATE-ATROPINE TABLET) 1 Each Tablet, 1 EACH PO Q6H Y for DIARRHEA for 10 Days, #40 TAB Prov:ANTONINA HUSAIN [facility] 10/28/17 Levothyroxine Sodium (LEVOTHYROXINE SODIUM) 50 Mcg Tablet, 0.05 MG PO QDAY@0600 for 30 Days, #30 TAB Prov:STEVEN CHEN MD 09/23/17 Amlodipine Besylate (AMLODIPINE BESYLATE) 2.5 Mg Tablet, 2.5 MG PO QDAY for 30 Days, #30 TAB Prov:STEVEN CHEN MD 09/23/17 Reported Medications [Naturemade Probiotic] No Conflict Check, 2 TAB QDAY 10/26/17 Multivit/Iron/FA/K/Herb No.244 (Alive Women's Energy Mv Tablet) 1 Each Tablet 10/26/17 Insulin Glargine,Hum.rec.anlog (Amauri Colon) 300 Unit/1 Ml Insuln.pen, 36 SUBQ HS 09/20/17 Simvastatin (SIMVASTATIN) 20 Mg Tablet, 10 MG PO HS, TAB 07/19/17 Discontinued Scripts Levofloxacin 500 Mg Tab (LEVAQUIN 500 MG TAB) 500 Mg Tablet, 250 MG PO QDAY for 5 Days, #5 TAB Prov:STEVEN CHEN MD 09/23/17 Omeprazole (OMEPRAZOLE) 40 Mg Capsule., 40 MG PO QDAY, #30 CAP Prov:VALORIE RAINEY WENDY 09/10/17 Diet: Diabetic Activity: As Tolerated Copies to: SY FARAH DO Venous Thromboembolism Antithrombotics Is Pt On Any Antithrombotics?: Yes Kifx-mi-Caam Certification Face to Face Home Health Certification Institutional Provider conducted the [id number] encounter. Electronic Undersigning Physician Certifies Home Health. I certify that the patient has been under my care and that I had a [id number] encounter that meets the physician [id number] encounter requirements with this patient. This patient is home-bound due to safety issues and continues to require assistance with ADL's. I certify that based on my findings, that Nursing, Aides and the following Home Health services are medically necessary. Medical Necessity: Nursing, Rehab Date Face to Face Conducted: Oct 28, 2017 ANTONINA HUSAINP Oct 28, 2017 08:34
[2017-10-28] MEDS: VANCOMYCIN HCL 125 MG CAPSULE PO SCH (08:50)
[2017-10-28] MEDS: ENOXAPARIN 40 MG/0.4ML SYR SC SCH (08:50)
[2017-10-28] MEDS: amLODIPine BESYL(*) 2.5 MG TAB PO SCH (08:50)
--- NOTE | 2017-10-28 11:13 | Antimicrobial Stewardship ---
Antimicrobial Time Out Antimicrobial Stewardship MD Service: Hospitalist Indications: Other (C. diff colitis) Antimicrobial Used Vancomycin 125mg po QID Start Date: Oct 27, 2017 Culture Results: Yes (Antigen and toxin (+)) Eligible for PO Conversion Eligable for PO Conversion: Yes Reviewed with Provider Reviewed w/ Provider on Rounds: Yes Date Reviewed w/ Provider: Oct 27, 2017 (Reviewed daily) Comments Comments Patient with C. Diff colitis, positive toxin and antigen, multiple stools daily. Started on Flagyl IV x 1, then oral vancomycin. Continue oral vancomycin to complete a full course of treatment 10 days. Rosalee Johnston, PharmD, BCOP ROSALEE JOHNSTON Oct 28, 2017 11:13
== END 2017-10-28 09:40 | disposition home health service (06) | DRG 372 ==
LOC: ER 14:05 → MED 18:24
PROVIDERS: ADMIT Internal Medicine; ATTEND Internal Medicine
DX: A04.72 Enterocolitis due to Clostridium difficile, not specified as recurrent (principal); N17.9 Acute kidney failure, unspecified; N39.0 Urinary tract infection, site not specified; Z68.41 Body mass index [BMI] 40.0-44.9, adult; I45.81 Long QT syndrome; E86.0 Dehydration; E66.01 Morbid (severe) obesity due to excess calories; E11.9 Type 2 diabetes mellitus without complications; E03.9 Hypothyroidism, unspecified; S72.492 Other fracture of lower end of left femur; Z88.0 Allergy status to penicillin; Z86.718 Personal history of other venous thrombosis and embolism; Z96.642 Presence of left artificial hip joint; Z79.4 Long term (current) use of insulin
CPT/HCPCS: 36415; 36416; 74177; 81001; 82040; 82150; 82247; 82274; 82310; 82374; 82435; 82565; 82947; 82948; 83605; 83630; 83690; 84075; 84132; 84155; 84295; 84443; 84450; 84460; 84484; 84520; 84703; 85025; 86677; 87045; 87077; 87088; 87177; 87186; 87324; 87449; 93005; 99284; J1650; J1956; J2405; J3490; J7030; Q9967

== ENCOUNTER → 2017-10-26 | Outpatient (REF) | payer MEDICARE, MEDICAID ==
[~2017-10-26] MED LIST changes: +AMLO2.5T74 PO; +DIPH-543 PO; +INSU300I SUBQ; +LEVO-85 PO; +MULT-36; +PROBIOTIC
[2017-10-26 13:59] LABS: PLATELET COUNT, AUTOMATED 311 K/uL (150-450)
== END ==
PROVIDERS: ATTEND Physician Assistant Medical
DX: R19.7 Diarrhea, unspecified (principal)
CPT/HCPCS: 82040; 82247; 82310; 82374; 82435; 82565; 82947; 84075; 84132; 84155; 84295; 84450; 84460; 84520; 85025

== ENCOUNTER → 2017-10-26 | Outpatient (CLI) | payer MEDICARE, MEDICAID ==
[~2017-10-26] MED LIST changes: +VANC125C10 PO
== END ==
LOC: AMB 13:36
PROVIDERS: ATTEND Nurse Practitioner
DX: R53.1 Weakness (principal); R19.7 Diarrhea, unspecified; E66.01 Morbid (severe) obesity due to excess calories
CPT/HCPCS: A0425; A0429

== ENCOUNTER → 2017-12-01 | Outpatient (REF) | payer MEDICARE, MEDICAID ==
[~2017-12-01] MED LIST changes: +MULT-36; +PROBIOTIC; +VANC125C10 PO
== END ==
LOC: ZZSENDIN 12:15
PROVIDERS: ATTEND Physician Assistant Medical
DX: A04.72 Enterocolitis due to Clostridium difficile, not specified as recurrent (principal)
CPT/HCPCS: 87324; 87449

== ENCOUNTER → 2018-01-18 | Outpatient (CLI) | payer MEDICARE, MEDICAID ==
[~2018-01-18] MED LIST changes: -AMLO2.5T74 PO; +AMLO2.5T76 PO; -METF-411 PO; +METF-450 PO
--- NOTE | 2018-01-18 16:36 | RADIOLOGY IMAGING REPORT ---
FACILITY: [facility] PATIENT NAME: Mera Echevarria : 1960 MR: [id number] V: [id number] EXAM DATE: [id number] ORDERING PHYSICIAN: JUVENCIO HENAO TECHNOLOGIST: [place] [facility] [place]: Mera Echevarria : 1960 Visit/Account:[id number] Date of Sevice: 01/18/2018 CT of the left femur INDICATION: Fracture. Prior instrumented fixation. Assess healing. COMPARISON: Plain films dated 07/19/2017 are reviewed. Technique: Axial CT images were obtained through the left femur. Reformatted coronal and sagittal jose ges were reviewed. One of the following dose optimization techniques was utilized in the performance of this exam: Autom ated exposure control; adjustment of the mA and/or kV according to the patient's size; or use of an i terative reconstruction technique. Specific details can be referenced in the facility's radiology C T exam operational policy. FINDINGS: There has been previous open reduction and internal fixation of the distal left femur fracture with a lateral sided plate which extends to overlie the lateral condyle. There are multiple bicortical scre ws and bicondylar screws in place. The impacted distal femur fracture remains well-visualized. There is a transverse fracture line involving the supracondylar region. There is a longitudinal component w hich extends into the joint space at the trochlea. There is an apparent impacted fracture deformity i nvolving the lateral condyle along its central and anterior weightbearing surface. There are some are as of bony callus but no bridging bone or callus to suggest healing. There are changes of 3 compartment osteoarthritis at the knee. There is a knee joint effusion. There is soft tissue swelling about the knee and extending into the thigh. Atherosclerosis noted within the femoral and popliteal vasculature. IMPRESSION: 1. 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 2. 3 compartment osteoarthritis of the left knee with a small joint effusion. Report Dictated By: Nasir Mcknight at 01/18/2018 4:17 PM Report E-Signed By: Nasir Mcknight at 01/18/2018 4:32 PM WSN:[id number]
== END ==
LOC: CT 00:48
PROVIDERS: ATTEND Orthopaedic Surgery
DX: Z09 Encounter for follow-up examination after completed treatment for conditions other than malignant neoplasm (principal); S72.465D Nondisplaced supracondylar fracture with intracondylar extension of lower end of left femur, subsequent encounter for closed fracture with routine healing; M25.462 Effusion, left knee; M17.12 Unilateral primary osteoarthritis, left knee

== ENCOUNTER → 2018-04-29 | Outpatient (REF) | payer MEDICARE, MEDICAID ==
[~2018-04-29] MED LIST changes: -AMLO2.5T76 PO; +AMLO2.5T78 PO
== END ==
LOC: ZZSENDIN 13:58
PROVIDERS: ATTEND Family Medicine
DX: R19.5 Other fecal abnormalities (principal); R19.7 Diarrhea, unspecified
CPT/HCPCS: 83630; 83993; 87045; 87177; 87269; 87324; 87449

== ENCOUNTER → 2018-11-22 | Outpatient (REF) | payer MEDICARE, MEDICAID | LOC: ZZSENDIN 15:12 | PROVIDERS: ATTEND Family Medicine | DX: R30.0 Dysuria (principal); B96.89 Other specified bacterial agents as the cause of diseases classified elsewhere | CPT/HCPCS: 87077; 87088; 87186 ==